=== PATIENT | female | born 1960 | race Caucasian/White ===

== ENCOUNTER 2017-06-29 15:25 | Emergency (ER) | payer OTHER ==
[2017-06-29] MEDS ORDERED: Acetaminophen/Codeine 30-300mg Tablet ONE (16:19)
== END 2017-06-29 16:34 | disposition home or self-care (01) ==
LOC: ERS 15:25
DX: K02.9 Dental caries, unspecified (principal); K03.81 Cracked tooth; F17.210 Nicotine dependence, cigarettes, uncomplicated; Z79.899 Other long term (current) drug therapy
CPT/HCPCS: 99406

== ENCOUNTER 2017-10-23 19:01 | Emergency (ER) | payer OTHER ==
--- NOTE | 2017-10-23 19:56 | RAD ---
TWO VIEW CHEST: 10/23/17 HISTORY: Cough. The lungs are clear. No infiltrates seen. Heart size is normal. IMPRESSION: No acute abnormality identified. POS: [facility]
== END 2017-10-23 20:03 | disposition home or self-care (01) ==
LOC: SCSER 19:01
DX: J06.9 Acute upper respiratory infection, unspecified (principal); F17.210 Nicotine dependence, cigarettes, uncomplicated
CPT/HCPCS: 71046

== ENCOUNTER 2017-12-15 15:23 | Emergency (ER) | payer OTHER | END 2017-12-15 16:10 | disposition left against medical advice (07) | LOC: ERS 15:23 | DX: Z53.21 Procedure and treatment not carried out due to patient leaving prior to being seen by health care provider (principal) ==

== ENCOUNTER 2017-12-17 12:42 | Emergency (ER) | payer OTHER ==
[2017-12-17 13:38] LABS: #Eosinphils 0.2 thou/uL (0.0-0.7); #Lymphocytes 2.5 thou/uL (1.20-3.40); #Monocytes 0.5 thou/uL (0.11-0.59); #Neutrophils 5.7 thou/uL (1.40-6.50); %Basophils 0.5 % (0.0-1.0); %Eosinophils 2.2 % (0.0-10.0); %Lymphocytes 27.8 % (21.0-51.0); %Monocytes 5.4 % (0.0-10.0); Hemoglobin 14.7 g/dL (12.0-16.0); Mean Corpuscular HGB CONC 33.1 g/dL (32.0-36.0); Mean Corpuscular Hemoglobin 30.1 pg (27.0-31.0); Mean Platelet Volume 6.7 fL (7.4-10.4); Platelet Count 392 thou/uL (130-400); Red Blood Cell (RBC) Count 4.87 mill/uL (4.20-5.40)
--- NOTE | 2017-12-17 13:44 | RAD ---
CHEST ONE VIEW PORTABLE: History: 57-year-old female with follow up cough and congestion in a patient with smoking history. FINDINGS: Heart size is normal. The lungs are clear. No pneumonia, edema, or pleural effusion. Stable focal are a of minimal increased density in the right humeral neck which is stable. IMPRESSION: No acute intrathoracic disease. Stable from prior study. No evidence of pneumonia, edema, or pleural effusion. POS: [facility]
[2017-12-17 14:02] LABS: ALT (SGPT) 18 U/L (8-55); AST (SGOT) 14 U/L (5-34); Albumin 4.4 g/dL (3.5-5.0); Alkaline Phosphatase 110 U/L (40-150); Anion Gap 16 mmol/L (10-20); BUN (Urea Nitrogen) 10 mg/dL (9.8-20.1); Bilirubin, Total 0.9 mg/dL (0.2-1.2); CK (CPK) 40 U/L (29-168); Calc. Creatinine Clearance 0 mL/min (70-130); Calcium 9.9 mg/dL (7.8-10.44); Carbon Dioxide 25 mmol/L (22-29); Chloride 104 mmol/L (98-107); Estimated GFR-MDRD 73; Globulin 3.1 g/dL (2.4-3.5); Glucose 86 mg/dL (70-105); Potassium 4.7 mmol/L (3.5-5.1); Protein, Total 7.5 g/dL (6.0-8.3); Sodium 140 mmol/L (136-145)
[2017-12-17 14:06] LABS: CKMB 0.9 ng/mL (0-6.6); Troponin I Less than 0.010 ng/mL (< 0.028)
[2017-12-17] MEDS ORDERED: Ketorolac Tromethamine 30 MG/ML VIAL ONE (14:59)
== END 2017-12-17 15:18 | disposition home or self-care (01) ==
LOC: ERS 12:42
DX: R07.89 Other chest pain (principal); F32.9 Major depressive disorder, single episode, unspecified; F17.210 Nicotine dependence, cigarettes, uncomplicated; Z79.899 Other long term (current) drug therapy
CPT/HCPCS: 36415; 71045; 80053; 82550; 82553; 84484; 85025; 93005; 96372; J1885

== ENCOUNTER 2019-01-12 16:48 | Emergency (ER) | payer OTHER ==
[2019-01-12 17:07] LABS: Bilirubin Negative (Negative); Blood, Urine Negative (Negative); Clarity CLEAR (Clear); Glucose, Urine (Dipstick) Negative (Negative); Leukocyte Negative (Negative); Nitrite Positive (Negative); Protein, Urine (Dipstick) Negative (Neg-Trace); Specific Gravity, Urine 1.019 (1.002-1.036); Urobilinogen 0.2 mg/dL (0.2-1.0); pH, Urine 5.5 (5.0-9.0)
[2019-01-12 17:10] LABS: Bacteria/HPF 4+ HPF (None Seen); Hyaline Casts/LPF 0-3 HYALINE CAST LPF (0-3 Hyaline); RBC/HPF 0-3 HPF (0-3); Squamous Epithelial 0-3 HPF (0-3); WBC/HPF 0-3 HPF (0-3)
[2019-01-12 18:28] LABS: #Eosinphils 0.1 thou/uL (0.0-0.7); #Lymphocytes 2.7 thou/uL (1.20-3.40); #Monocytes 0.7 thou/uL (0.11-0.59); %Basophils 0.3 % (0.0-1.0); %Eosinophils 1.1 % (0.0-10.0); %Lymphocytes 20.1 % (21.0-51.0); %Monocytes 4.8 % (0.0-10.0); %Neutrophils 73.8 % (42.0-75.0); Hemoglobin 14.9 g/dL (12.0-16.0); Mean Corpuscular HGB CONC 33.2 g/dL (32.0-36.0); Mean Corpuscular Hemoglobin 30.9 pg (27.0-31.0); Platelet Count 361 thou/uL (130-400); RBC Distribution Width 12.2 % (11.5-14.5); Red Blood Cell (RBC) Count 4.82 mill/uL (4.20-5.40); White Blood Cell (WBC) Count 13.6 thou/uL (4.8-10.8)
[2019-01-12 18:46] LABS: BHCG - Serum Negative (NEGATIVE); Pregs Control Background? CLEAR/WHITE (CLR/WHITE); Pregs Control Bar Appear? YES (CONTROL BAR)
[2019-01-12 18:51] LABS: ALT (SGPT) 16 U/L (8-55); AST (SGOT) 13 U/L (5-34); Albumin 4.3 g/dL (3.5-5.0); Alkaline Phosphatase 103 U/L (40-150); Anion Gap 12 mmol/L (10-20); Bilirubin, Total 0.6 mg/dL (0.2-1.2); Calc. Creatinine Clearance 0 mL/min (70-130); Calcium 9.7 mg/dL (7.8-10.44); Carbon Dioxide 27 mmol/L (22-29); Chloride 105 mmol/L (98-107); Estimated GFR-MDRD 80; Globulin 2.8 g/dL (2.4-3.5); Glucose 84 mg/dL (70-105); Lipase 23 U/L (8-78); Potassium 3.5 mmol/L (3.5-5.1); Protein, Total 7.1 g/dL (6.0-8.3); Sodium 140 mmol/L (136-145)
[2019-01-12 18:54] LABS: BUN (Urea Nitrogen) 13 mg/dL (9.8-20.1)
== END 2019-01-12 19:55 | disposition left against medical advice (07) ==
LOC: ERS 16:48
DX: M54.5 Low back pain (principal); F32.9 Major depressive disorder, single episode, unspecified; F17.210 Nicotine dependence, cigarettes, uncomplicated; Z79.899 Other long term (current) drug therapy
CPT/HCPCS: 36415; 80053; 81003; 81015; 83690; 84703; 85025; 99283

== ENCOUNTER 2019-06-21 15:00 | Emergency (ER) | payer OTHER ==
[2019-06-21 15:37] LABS: Bilirubin Negative (Negative); Blood, Urine Negative (Negative); Clarity Clear (Clear); Glucose, Urine (Dipstick) Normal (Negative); Leukocyte Negative Leu/uL (Negative); Nitrite Negative (Negative); Protein, Urine (Dipstick) Negative (Neg-Trace); Urobilinogen Normal mg/dL (Less than 2)
[2019-06-21] MEDS ORDERED: Ondansetron PF 4 MG/2 ML Vial ONE (16:19)
[2019-06-21] MEDS ORDERED: Ketorolac Tromethamine 30 MG/ML VIAL ONE (16:19)
--- NOTE | 2019-06-21 17:29 | CT ---
CT ABDOMEN AND PELVIS WITH CONTRAST: 06/21/19 INDICATION: Abdominal pain, diarrhea. FINDINGS: The lung bases are clear. Liver, spleen, pancreas unremarkable. Adrenal glands and kidneys unremarkable. Small bowel loops unremarkable. The appendix appears normal. Within the colon shows large amount of stool throughout the colon. There is mural thickening inflamm atory change involving the sigmoid and rectum. There is an area of abrupt luminal change in the lower sigmoid. Mucosal lesion at this site should be excluded. Small amount of fluid in the deep pelvis. IMPRESSION: Large amount of stool throughout the colon. Mural thickening and inflammatory change in the sigmoid a nd rectum consistent with colitis. Abrupt caliber change in the lower sigmoid. Recommend colonoscopy to rule out mucosa lesion and to assess the apparent colitis. POS: [facility]
[2019-06-21 17:36] LABS: Hemoglobin 14.7 g/dL (12.0-16.0); Mean Corpuscular HGB CONC 32.8 g/dL (32.0-36.0); Mean Corpuscular Hemoglobin 30.9 pg (27.0-31.0); Mean Corpuscular Volume 94.4 fL (78.0-98.0); Mean Platelet Volume 7.4 fL (7.4-10.4); Platelet Count 306 thou/uL (130-400); RBC Distribution Width 11.8 % (11.5-14.5); Red Blood Cell (RBC) Count 4.74 mill/uL (4.20-5.40); White Blood Cell (WBC) Count 10.2 thou/uL (4.8-10.8)
[2019-06-21 17:51] LABS: Band 4 % (5-11); Eosinophils 1 % (0-10); Lymphocytes 29 % (21-51); MDiff Complete? YES; Monocytes 2 % (0-10); Neutrophil 64 % (42-75); Platelet Morphology Comment Appears Adequate; RBC Morphology Normal
[2019-06-21 18:09] LABS: ALT (SGPT) 11 U/L (8-55); AST (SGOT) 15 U/L (5-34); Albumin 3.8 g/dL (3.5-5.0); Alkaline Phosphatase 88 U/L (40-110); Anion Gap 14 mmol/L (10-20); BUN (Urea Nitrogen) 10 mg/dL (9.8-20.1); Bilirubin, Total 0.4 mg/dL (0.2-1.2); Calc. Creatinine Clearance 0 mL/min (70-130); Calcium 8.9 mg/dL (7.8-10.44); Carbon Dioxide 23 mmol/L (22-29); Chloride 104 mmol/L (98-107); Estimated GFR-MDRD 83; Globulin 2.9 g/dL (2.4-3.5); Glucose 67 mg/dL (70-105); Lipase 35 U/L (8-78); Potassium 4.3 mmol/L (3.5-5.1); Protein, Total 6.7 g/dL (6.0-8.3); Sodium 137 mmol/L (136-145)
== END 2019-06-21 19:14 | disposition home or self-care (01) ==
LOC: ERS 15:00
DX: K52.9 Noninfective gastroenteritis and colitis, unspecified (principal); F32.9 Major depressive disorder, single episode, unspecified; F17.210 Nicotine dependence, cigarettes, uncomplicated; Z79.899 Other long term (current) drug therapy
CPT/HCPCS: 36415; 74177; 80053; 81003; 83605; 83690; 85025; 96361; 96374; 96375; J1885; J2405

== ENCOUNTER 2019-09-02 11:44 | Emergency (ER) | payer OTHER | END 2019-09-02 13:07 | disposition left against medical advice (07) | LOC: ERS 11:44 | DX: Z53.21 Procedure and treatment not carried out due to patient leaving prior to being seen by health care provider (principal) ==

== ENCOUNTER 2019-09-21 19:05 | Emergency (ER) | payer OTHER ==
[2019-09-21 20:54] LABS: #Basophils 0.1 thou/uL (0.0-0.2); #Eosinphils 0.3 thou/uL (0.0-0.7); #Lymphocytes 3.4 thou/uL (1.20-3.40); #Monocytes 0.6 thou/uL (0.11-0.59); #Neutrophils 6.7 thou/uL (1.40-6.50); %Basophils 0.9 % (0.0-1.0); %Eosinophils 2.6 % (0.0-10.0); %Lymphocytes 30.8 % (21.0-51.0); %Monocytes 5.7 % (0.0-10.0); %Neutrophils 60.1 % (42.0-75.0); Hemoglobin 15.2 g/dL (12.0-16.0); Mean Corpuscular HGB CONC 32.3 g/dL (32.0-36.0); Mean Corpuscular Hemoglobin 29.8 pg (27.0-31.0); Mean Corpuscular Volume 92.3 fL (78.0-98.0); Mean Platelet Volume 7.6 fL (7.4-10.4); Platelet Count 453 thou/uL (130-400); RBC Distribution Width 12.2 % (11.5-14.5); Red Blood Cell (RBC) Count 5.09 mill/uL (4.20-5.40); White Blood Cell (WBC) Count 11.2 thou/uL (4.8-10.8)
[2019-09-21 21:17] LABS: ALT (SGPT) 15 U/L (8-55); AST (SGOT) 9 U/L (5-34); Albumin 4.7 g/dL (3.5-5.0); Alkaline Phosphatase 121 U/L (40-110); Anion Gap 13 mmol/L (10-20); BUN (Urea Nitrogen) 13 mg/dL (9.8-20.1); Bilirubin, Total 0.5 mg/dL (0.2-1.2); Calc. Creatinine Clearance 0 mL/min (70-130); Calcium 9.7 mg/dL (7.8-10.44); Carbon Dioxide 27 mmol/L (22-29); Chloride 105 mmol/L (98-107); Estimated GFR-MDRD 78; Glucose 99 mg/dL (70-105); Potassium 4.1 mmol/L (3.5-5.1); Protein, Total 7.7 g/dL (6.0-8.3); Sodium 141 mmol/L (136-145)
[2019-09-22 00:41] LABS: Bilirubin Negative (Negative); Blood, Urine Negative (Negative); Clarity Clear (Clear); Glucose, Urine (Dipstick) Normal (Negative); Leukocyte Negative Leu/uL (Negative); Nitrite Negative (Negative); Protein, Urine (Dipstick) Negative (Neg-Trace)
[2019-09-22] MEDS ORDERED: Morphine 4 MG/ML VIAL ONE (01:08)
== END 2019-09-22 01:15 | disposition left against medical advice (07) ==
LOC: ERS 19:05
DX: C18.9 Malignant neoplasm of colon, unspecified (principal); F17.210 Nicotine dependence, cigarettes, uncomplicated; F32.9 Major depressive disorder, single episode, unspecified
CPT/HCPCS: 36415; 80053; 81003; 83690; 85025; 99284; J2270

== ENCOUNTER 2019-09-30 07:46 | Outpatient (CLI) | payer OTHER ==
[2019-09-30 14:31] LABS: #Basophils 0.1 thou/uL (0.0-0.2); #Eosinphils 0.3 thou/uL (0.0-0.7); #Lymphocytes 2.8 thou/uL (1.20-3.40); #Monocytes 0.6 thou/uL (0.11-0.59); #Neutrophils 8.4 thou/uL (1.40-6.50); %Basophils 0.8 % (0.0-1.0); %Eosinophils 2.2 % (0.0-10.0); %Lymphocytes 22.8 % (21.0-51.0); %Monocytes 5.2 % (0.0-10.0); Hemoglobin 14.2 g/dL (12.0-16.0); Mean Corpuscular HGB CONC 32.4 g/dL (32.0-36.0); Mean Corpuscular Hemoglobin 29.9 pg (27.0-31.0); Mean Corpuscular Volume 92.4 fL (78.0-98.0); Platelet Count 389 thou/uL (130-400); Red Blood Cell (RBC) Count 4.74 mill/uL (4.20-5.40); White Blood Cell (WBC) Count 12.2 thou/uL (4.8-10.8)
[2019-09-30 14:38] LABS: Hemoglobin A1c 5.3 % (4.0-6.0)
[2019-09-30 14:52] LABS: ALT (SGPT) 14 U/L (8-55); AST (SGOT) 13 U/L (5-34); Albumin 4.3 g/dL (3.5-5.0); Alkaline Phosphatase 108 U/L (40-110); Anion Gap 12 mmol/L (10-20); BUN (Urea Nitrogen) 12 mg/dL (9.8-20.1); Bilirubin, Total 0.6 mg/dL (0.2-1.2); Calc. Creatinine Clearance 0 mL/min (70-130); Carbon Dioxide 25 mmol/L (22-29); Chloride 107 mmol/L (98-107); Estimated GFR-MDRD 80; Globulin 2.4 g/dL (2.4-3.5); Glucose 80 mg/dL (70-105); Potassium 4.2 mmol/L (3.5-5.1); Protein, Total 6.7 g/dL (6.0-8.3); Sodium 140 mmol/L (136-145)
--- NOTE | 2019-10-03 00:19 | EKG ---
Test Reason : Blood Pressure : / mmHG Vent. Rate : 080 BPM Atrial Rate : 080 BPM P-R Int : 000 ms QRS Dur : 086 ms QT Int : 358 ms P-R-T Axes : 000 091 084 degrees QTc Int : 412 ms Sinus rhythm with marked sinus arrhythmia Rightward axis Borderline ECG When compared with ECG of 17-DEC-2017 13:03, (Unconfirmed) No significant change was found Confirmed by Esvin SMITH ([id number]) on 10/03/2019 12:19:14 AM Referred By: DALIA Confirmed By:Esvin SMITH
== END 2019-09-30 07:47 | disposition home or self-care (01) ==
LOC: LABBT 07:46
PROVIDERS: ATTEND Specialist
DX: Z01.818 Encounter for other preprocedural examination (principal); K63.89 Other specified diseases of intestine
CPT/HCPCS: 80053; 82378; 83036; 85025; 93005; 93010

== ENCOUNTER 2019-09-30 12:30 | Inpatient (IN) | payer OTHER ==
[2019-09-30 13:18] VITALS: BMI 22.4
--- NOTE | 2019-10-03 12:31 | HP ---
HISTORY OF PRESENT ILLNESS: Roberta Bell is a 59-year-old female with significant anxiety, depression, and panic attacks diagnoses. She is on disability from that. She is followed by [facility]. She was having abdominal pain as far back as May of 2019, presented to the emergency room. CT scan obtained, revealed changes in the colon, thought to be diverticulitis, so she was treated with antibiotics. Colonoscopy was recommended. [facility] was [facility] and because of the concern that she might have diverticulitis, her colonoscopy was postponed. She then presented to the emergency room on several other occasions, but left AMA. She finally presented to [facility], was admitted September 10, , and , seen by Dr. Hayes. Dr. Hayes performed a colonoscopy, but could not get the scope past 15 to 20 cm despite even trying a smaller scope. Biopsies revealed changes consistent with adenocarcinoma. The patient however did not follow up with Dr. Hayes and his efforts to get her into the office were delayed, and when she finally presented on Thursday, he suggested that she is to go the emergency room at [facility], which she did, and as preparation was made to admit her, she left AMA. She now presents to my office without family to discuss her colon cancer. She did have a CT scan in mid August 2019 at [facility] revealing spiculated mass, lower sigmoid into the mesentery. There were some small lymph nodes, 1.2 to 1.3 cm. There was a stricture in the sigmoid colon with spiculation extending into the mesentery. There was a [id number] amount of retained stool proximally. CT scan did not reveal any evidence of hepatic metastasis. Her hemoglobin was 15. BMP normal. ALLERGIES: NONE. HABITS: Tobacco, 1/2 pack per day. Alcohol, none. PAST SURGICAL HISTORY: 1. . 2. Partial hysterectomy. She describes as hysterectomy with unilateral salpingo-oophorectomy. MEDICATIONS: 1. Nortriptyline 50 mg at bedtime. 2. Paroxetine 30 mg, 1/2 tab morning and 1-1/2 tabs nightly. She is followed by [facility]. As noted above, she is on disability for her panic and anxiety disorder as well as depression. SOCIAL HISTORY: The patient is and lives alone. She has grandchildren. FAMILY HISTORY: Noncontributory. REVIEW OF SYSTEMS: Noncontributory. No history of chest pain or chest pressure or dyspnea. PHYSICAL EXAMINATION: VITAL SIGNS: Weight 119 pounds, height 5 feet 9 inches, 22 BMI, 100/63 blood pressure, 112 heart rate, 98.2 degrees. HEAD, EARS, EYES, NOSE, AND THROAT: Unremarkable. LUNGS: Clear to auscultation. CARDIAC: Regular rate and rhythm without murmur or gallop. ABDOMEN: Soft, fullness without discrete mass palpated in the left lower quadrant, otherwise unremarkable. EXTREMITIES: Unremarkable. ASSESSMENT AND PLAN: 1. 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 We would recommend 2 days of bowel prep with 2 days of Suprep, 2 days of clear liquids, general anesthesia and TAP block for laparoscopic possible open sigmoid colon resection with anastomosis. Risks of infection, bleeding, reoperation, anastomotic leak discussed. We will plan that for next week. She understands risks and benefits. Questions were answered. 2. Tobacco abuse. I have encouraged tobacco cessation or at least cutting down prior to her operation. She states she will do her best. 3. No evidence of hepatic metastasis on multiple CT scans since May and more recently, mid August. We will check CEA level. We will plan oncology referral as an outpatient postoperatively more than likely. Job ID: [id number]
[2019-10-05] MEDS ORDERED: PROPOFOL 200 MG/20 ML VIAL ONE (10:52)
[2019-10-05] MEDS ORDERED: Dexamethasone 20 MG/5 ML VIAL ONE (10:52)
[2019-10-05] MEDS ORDERED: PHENYLEPHRINE-NS 100 MCG/ML 10 ML SYRINGE ONE (10:52)
[2019-10-05] MEDS ORDERED: Bupivacaine HCl 0.5%/Epinephrine 1:200,000/PF 30 ml Vial ONE (10:52)
[2019-10-05] MEDS ORDERED: Ondansetron PF 4 MG/2 ML Vial ONE (10:52)
[2019-10-05] MEDS ORDERED: Glycopyrrolate 0.2 MG/ML 5 ML SYRINGE ONE (10:52)
[2019-10-05] MEDS ORDERED: Rocuronium Bromide 10 MG/ML (10ML VIAL) ONE (10:52)
[2019-10-05] MEDS ORDERED: Gabapentin 300 MG CAP ONE (11:37)
[2019-10-05] MEDS ORDERED: Acetaminophen 500 MG TAB ONE (11:37)
[2019-10-05] MEDS ORDERED: Ketorolac Tromethamine 30 MG/ML VIAL ONE (11:38)
[2019-10-05] MEDS ORDERED: Meropenem 2 GM in Admixture Fee 1 EACH IVPB SCH (11:45)
[2019-10-05] MEDS ORDERED: Gabapentin 300 MG CAP PO SCH (11:45)
[2019-10-05] MEDS ORDERED: Meropenem 2 GM in Sodium Chloride 0.9% 100 ML IVPB SCH (12:00)
[2019-10-05] MEDS ORDERED: HYDROmorphone 0.5 MG/0.5 ML SYRINGE ONE (12:42)
[2019-10-05] MEDS ORDERED: SUGAMMADEX SODIUM 200 MG/2 ML VIAL ONE (12:42)
[2019-10-05] MEDS ORDERED: Bupivacaine 0.25% HCL 30 ML VIAL ONE (12:52)
[2019-10-05] MEDS ORDERED: Lidocaine 1% w/Epinephrine 1:100K 20 ML VIAL ONE (12:52)
[2019-10-05] MEDS ORDERED: Sodium Chloride 0.9% 20 ML ONE (14:00)
[2019-10-05] MEDS ORDERED: HYDROmorphone 2 MG/ML VIAL SLOW IVP PRN (14:29)
[2019-10-05] MEDS ORDERED: Ondansetron HCl/PF 4 MG/2 ML Vial IVP PRN (14:29)
[2019-10-05] MEDS ORDERED: Promethazine HCl 25 MG/ML VIAL SLOW IVP PRN (14:29)
[2019-10-05] MEDS ORDERED: Midazolam HCl 2 mg/2 ml Vial ONE (14:41)
[2019-10-05] MEDS ORDERED: Fentanyl 100 MCG/2 ML VIAL ONE (14:41)
[2019-10-05] MEDS ORDERED: hydrALAZINE 20 MG/ML VIAL SLOW IVP PRN (16:45)
[2019-10-05] MEDS ORDERED: Morphine 2 MG/ML SYRINGE SLOW IVP PRN (16:45)
[2019-10-05] MEDS ORDERED: Morphine 10 MG/ML VIAL SLOW IVP PRN (16:45)
[2019-10-05] MEDS ORDERED: Ondansetron PF 4 MG/2 ML Vial IVP PRN (16:45)
--- NOTE | 2019-10-05 17:23 | RAD ---
Chest one view HISTORY: Central line placement. Abdomen surgery. COMPARISON: 12/17/2017. FINDINGS: Cardiac silhouette and pulmonary vasculature are unremarkable. Left lung apical pleura over lies the posterior margin of the left third rib on the frontal view. Right lung is well-inflated. Mediastinum is midline with aortic calcification. Tip of a new left subc lavian central venous catheter projects over the cavoatrial junction. Small amount of air is seen under the diaphragm on this semiupright view. IMPRESSION: Small left pneumothorax (approximately 10%). Pneumoperitoneum from recent abdominal surgery. Atherosclerosis. Findings were called to Mariel in the PACU at 1710 hours. Code CR.
[2019-10-05] MEDS: Lactated Ringer's 1,000 ML IV SCH (18:05)
[2019-10-05] MEDS: Ketorolac Tromethamine 30 MG/ML VIAL IVP SCH ×2 (18:21→23:06)
[2019-10-05] MEDS: Morphine 4 MG/ML VIAL SLOW IVP PRN ×2 (18:22→21:05)
[2019-10-05] MEDS: Acetaminophen 500 MG TAB PO SCH ×2 (18:30→23:06)
--- NOTE | 2019-10-05 19:02 | RAD ---
XR Chest 1 View History: Pneumothorax Comparison: Radiograph same day Findings: The left pneumothorax is increased in size with a large basilar component. The apex is betw een the left second and third ribs. Large volume pneumoperitoneum. Right lung is relatively clear. Impression: Enlarging left pneumothorax with a large basilar component, approximately 30% volume.
[2019-10-05] MEDS ORDERED: Lidocaine 1% w/Epinephrine 1:100K 20 ML VIAL FS SCH (19:30)
--- NOTE | 2019-10-05 20:26 | RAD ---
XR Chest 1 View Portable History: Chest tube Comparison: Radiograph same day Findings: Improved aeration of the left lung after thoracostomy tube placement. Central venous cathet er tip is similar. Impression: Markedly improved aeration of the left lung post thoracostomy placement.
[2019-10-05] MEDS: Gabapentin 300 MG CAP PO SCH (21:05)
[2019-10-05] MEDS: Enoxaparin Sodium 40 MG/0.4 ML SYRINGE SC SCH (21:05)
[2019-10-06] MEDS: Lactated Ringer's 1,000 ML IV SCH ×5 (01:50→20:54)
--- NOTE | 2019-10-06 02:14 | OP ---
DATE OF PROCEDURE: 10/05/2019 PREOPERATIVE DIAGNOSIS: Sigmoid colon cancer, high-grade, obstructive, could not perform colonoscopy, yet could tolerate a bowel prep. POSTOPERATIVE DIAGNOSES: Sigmoid colon cancer, high-grade, obstructive, could not perform colonoscopy, yet could tolerate a bowel prep with large fecalith and large tumor and multiple large stool balls throughout the colon due to the high-grade obstruction, poor IV access. PROCEDURES PERFORMED: Left subclavian vein central line, laparoscopic converted to open, left colon resection with splenic flexure mobilization, left colectomy, low pelvic colorectal anastomosis staple 31 mm EEA and protective loop ileostomy. Incidental appendectomy, fecalith. No evidence of metastatic disease except for bulky lymphadenopathy, mesentery grossly. ANESTHESIA: General, TAP block. ESTIMATED BLOOD LOSS: 250 mL. BLOOD TRANSFUSION: None. Preoperative CEA level 6.9. DESCRIPTION OF PROCEDURE: The patient was taken to the operating room, where under general anesthesia and TAP block in the dorsal lithotomy position, the left paraclavicular area was prepared with ChloraPrep and draped in routine fashion. Seldinger technique used to place an infraclavicular central line, subclavian vein, secured with 3-0 silk suture, sterile dressing, removing the J-wire. Each port aspirated, blood flushed with saline solution. Abdomen, pelvis, perineum, buttocks prepared with ChloraPrep and Betadine respectfully and Cruz catheter placed. An infraumbilical incision was made. Pneumoperitoneum to 15 mmHg was obtained with a Veress needle, replaced with a 5 port and video laparoscope inserted. Right lower quadrant incision made and a 12 port placed. The right upper quadrant, left upper quadrant, and left lower quadrant incision made and 5 port was placed. The colon tumor was noted in the sigmoid colon. There were multiple large stool balls in the left colon, sigmoid colon proximal to the high-grade obstruction. The tumor is so low and the stool wall is so large and the small bowel is slightly dilated. The complete laparoscopic procedure was not possible. The left colon was mobilized as able, felt to be adequate and then midline incision was made from above the umbilicus to the pubis through an old infraumbilical incision, carried through skin and subcutaneous tissue, midline fascia, and abdominal cavity sharply. Bookwalter retractor was used later in the procedure. Incision extended a few inches cephalad. The left colon was mobilized and the left and right ureters identified, kept free of harm as the left colon, splenic flexure, and pelvis mobilized of the sigmoid colon. Once this was mobilized, the sigmoid mesentery dissected free and the JOCELYN divided between clamps, ligating with 2-0 silk ties. The mesentery divided and dissected down to the pelvis, had it placed just after and just above the peritoneal reflection. The colon was dissected free, divided with a contour stapler. Hemorrhoidal vessels resected en bloc with the JOCELYN. Dissection was carried cephalad as the ureter was kept free of harm. Once the stool was milked distally at the proximal sigmoid colon, the colon was divided. The distal colon seemed to be dusky and question of blood supply, thus further dissection and mobilization of splenic flexure and distal transverse colon performed requiring the cephalad extension incision as described. Once this was performed, a viable margin in the colon was identified with adequate reach into the pelvis and the mesentery was serially divided with the LigaSure. The inferior mesenteric vein required revision to enable this. Once the colon was divided, mucosa was pink and healthy. Stool had milked into the specimen as able. Pursestring suture of 2-0 Prolene applied and 31 mm anvil applied and colon secured around the anvil. Gloves and gowns changed. Abdominal cavity irrigated. My psychology assistant then placed serial dilators per anus and easily passed to the rectal stump. The stapler was then inserted and post advanced out of the staple line and connected to the proximal anvil and to the proximal colon and these were mated and approximated with a torque fire range and stapler fired appropriately, then loosened removing intact donuts. The anastomosis was checked under water and there was no leak. Anastomosis was reinforced with interrupted Lembert suture of 3-0 silk. All quadrants inspected. Hemostasis noted. I grossly felt the colon could not feel any masses, although it is difficult due to retained large stool balls. There was a large fecalith. Thus, appendectomy undertaken dividing the mesoappendix with the LigaSure and stapling the cecal stump with a MICHAEL stapler. The appendix submitted to Pathology. At this point, the segment of the ileum approximately 8 to 9 inches from the ileocecal valve identified and brought out through a cruciate defect in the anterior rectus sheath and surgery defect in the skin and then abdominal cavity thoroughly irrigated, irrigant evacuated. Good hemostasis has been obtained. Sponge and needle counts correct. Midline fascia closed with continuous suture of #1 PDS. Skin and subcutaneous tissues irrigated. Skin approximated with madelaine and elvi dressing. Suction applied for the incision. Mickleton applied to the trocar sites. The right lower quadrant trocar site was closed with continuous segmental suture of 4-0 Monocryl. Dermabond applied. Loop ileostomy was then matured making a defect and then everting it with simple sutures of 3-0 Vicryl and ileostomy appliance secured. The patient tolerated the procedure well. Job ID: [id number]
--- NOTE | 2019-10-06 02:56 | OP ---
DATE OF PROCEDURE: 10/05/2019 PREOPERATIVE DIAGNOSIS: Pneumothorax, left chest secondary to central line placement, left subclavian. POSTOPERATIVE DIAGNOSIS: Pneumothorax, left chest secondary to central line placement, left subclavian. PROCEDURE PERFORMED: Left tube thoracostomy, Heimlich valve small caliber tube. ANESTHESIA: 1% Xylocaine with epinephrine. DESCRIPTION OF PROCEDURE: With the patient at bedside, her left lateral chest was prepared with ChloraPrep and draped in routine fashion. Local anesthetic was infiltrated in the skin and subcutaneous tissue at about the fifth intercostal space. After the area had been anesthetized, a stab was incision made and the Heimlich valve tube placed into the left thorax, aspirated air, threading the catheter, secured with 3-0 silk. Sterile dressings applied. It was connected to flutter valve and chest x-ray called for. Job ID: [id number]
[2019-10-06 03:46] LABS: Anion Gap 11 mmol/L (10-20); BUN (Urea Nitrogen) 13 mg/dL (9.8-20.1); Calc. Creatinine Clearance 78 mL/min (70-130); Calcium 8.4 mg/dL (7.8-10.44); Carbon Dioxide 25 mmol/L (22-29); Chloride 106 mmol/L (98-107); Estimated GFR-MDRD 89; Glucose 97 mg/dL (70-105); Potassium 4.2 mmol/L (3.5-5.1); Sodium 138 mmol/L (136-145)
[2019-10-06 04:00] LABS: Band 14 % (5-11); Hemoglobin 10.6 g/dL (12.0-16.0); Lymphocytes 9 % (21-51); MDiff Complete? YES; Mean Corpuscular HGB CONC 32.8 g/dL (32.0-36.0); Mean Corpuscular Hemoglobin 30.3 pg (27.0-31.0); Mean Corpuscular Volume 92.3 fL (78.0-98.0); Mean Platelet Volume 7.8 fL (7.4-10.4); Monocytes 5 % (0-10); Neutrophil 72 % (42-75); Platelet Count 311 thou/uL (130-400); White Blood Cell (WBC) Count 16.6 thou/uL (4.8-10.8)
[2019-10-06] MEDS: Acetaminophen 500 MG TAB PO SCH ×4 (05:24→23:11)
[2019-10-06] MEDS: Ketorolac Tromethamine 30 MG/ML VIAL IVP SCH ×4 (05:24→23:10)
[2019-10-06] MEDS ORDERED: Lactated Ringer's 1,000 ML IV SCH (06:30)
--- NOTE | 2019-10-06 07:51 | RAD ---
CHEST 1 VIEW PORTABLE: HISTORY: Followup pneumothorax. COMPARISON: 10/05/2019. FINDINGS: Left central line in place. Minimal free intraperitoneal air. Small caliber left chest tube in plac e. No convincing evidence for significant pneumothorax. IMPRESSION: Persistent small-caliber Heimlich valve catheter in place. No convincing evidence for significant le ft side pneumothorax. Overall stable. Continue short-term followup. POS: [facility]
[2019-10-06] MEDS: Gabapentin 300 MG CAP PO SCH ×3 (08:25→20:53)
[2019-10-06] MEDS: Pantoprazole 40 MG VIAL IVP SCH (08:25)
[2019-10-06] MEDS ORDERED: Fentanyl 100 MCG/2 ML VIAL SLOW IVP PRN (09:22)
[2019-10-06] MEDS ORDERED: Fentanyl 100 MCG/2 ML VIAL SLOW IVP ONE (09:30)
[2019-10-06] MEDS ORDERED: traMADol HCl 50 MG TAB PO PRN ×2 (18:18)
--- NOTE | 2019-10-06 18:39 | PRG ---
DATE OF SERVICE: 10/06/2019 SUBJECTIVE: Roberta Bell is postoperative day #1 after laparoscopic converted to open left colectomy, splenic flexure mobilization, colorectal anastomosis, protective diverting ileostomy, and incidental appendectomy performed because of hard stool within the appendiceal orifice. The patient complains of pain, but has been controlled reasonably. OBJECTIVE: VITAL SIGNS: Temperature 97.5 degrees, sat 92%, heart rate 100, blood pressure low blood pressure in the 90s to low 100s. Urine output 1425 over the last 24 hours. LUNGS: Clear to auscultation. CARDIAC: Regular rate and rhythm without murmur or gallop. ABDOMEN: Soft. Ileostomy healthy. The patient does have ileostomy output. EXTREMITIES: Unremarkable. LABORATORY DATA: Her white count today is 16 and hemoglobin 10. Basic metabolic profile is normal. ASSESSMENT/PLAN: 1. Status post sigmoid colon resection. Preoperative CEA 6.9. CAT scan without metastasis, although grossly the sigmoid tumor seen to have mesenteric lymphadenopathy. We will await pathology. Currently, she is tolerating liquids. We will increase her to full liquids. We will order oral analgesics. She has Toradol scheduled. 2. Chronic low blood pressure. Continue to monitor. She is mentating normally. Recheck tomorrow. Job ID: [id number]
[2019-10-06] MEDS: Enoxaparin Sodium 40 MG/0.4 ML SYRINGE SC SCH (20:53)
[2019-10-06] MEDS: Albumin 25% 25 GM/100 ML BOT IVPB SCH (23:11)
[2019-10-07] MEDS: Albumin 25% 25 GM/100 ML BOT IVPB SCH ×3 (05:56→17:39)
[2019-10-07] MEDS: Ketorolac Tromethamine 30 MG/ML VIAL IVP SCH ×3 (05:56→17:40)
[2019-10-07] MEDS: Acetaminophen 500 MG TAB PO SCH ×4 (05:56→23:45)
[2019-10-07 06:18] LABS: #Eosinphils 0.1 thou/uL (0.0-0.7); #Lymphocytes 2.3 thou/uL (1.20-3.40); #Monocytes 0.4 thou/uL (0.11-0.59); #Neutrophils 4.8 thou/uL (1.40-6.50); %Basophils 0.4 % (0.0-1.0); %Eosinophils 1.8 % (0.0-10.0); %Lymphocytes 29.3 % (21.0-51.0); %Monocytes 5.7 % (0.0-10.0); %Neutrophils 62.7 % (42.0-75.0); Hemoglobin 8.3 g/dL (12.0-16.0); Mean Corpuscular HGB CONC 30.8 g/dL (32.0-36.0); Mean Corpuscular Hemoglobin 28.6 pg (27.0-31.0); Mean Corpuscular Volume 92.9 fL (78.0-98.0); Mean Platelet Volume 7.4 fL (7.4-10.4); Platelet Count 249 thou/uL (130-400); RBC Distribution Width 12.2 % (11.5-14.5); Red Blood Cell (RBC) Count 2.89 mill/uL (4.20-5.40); White Blood Cell (WBC) Count 7.7 thou/uL (4.8-10.8)
[2019-10-07 06:39] LABS: ALT (SGPT) 19 U/L (8-55); AST (SGOT) 29 U/L (5-34); Albumin 3.2 g/dL (3.5-5.0); Alkaline Phosphatase 64 U/L (40-110); Anion Gap 8 mmol/L (10-20); BUN (Urea Nitrogen) 11 mg/dL (9.8-20.1); Bilirubin, Total 0.6 mg/dL (0.2-1.2); Calc. Creatinine Clearance 83 mL/min (70-130); Calcium 8.2 mg/dL (7.8-10.44); Carbon Dioxide 31 mmol/L (22-29); Chloride 107 mmol/L (98-107); Estimated GFR-MDRD Greater than 90; Globulin 1.7 g/dL (2.4-3.5); Glucose 90 mg/dL (70-105); Potassium 4.1 mmol/L (3.5-5.1); Protein, Total 4.9 g/dL (6.0-8.3); Sodium 142 mmol/L (136-145)
--- NOTE | 2019-10-07 08:08 | RAD ---
Exam: Chest one view HISTORY:Follow-up pneumothorax Comparison: 10/06/2019, 10/05/2019 FINDINGS: Cardiac silhouette: Normal Aorta: Atherosclerosis of the aortic knob Pulmonary vessels: Normal Costophrenic angles: Clear LUNGS: Stable left-sided small bore chest tube. No significant pneumothorax. Stable left-sided vascul ar catheter. Pneumothorax: No significant left-sided pneumothorax. Osseous abnormalities: None Incidentals: Redemonstration of pneumoperitoneum IMPRESSION: 1. Redemonstration of pneumoperitoneum 2. Stable left-sided small bore chest tube. No significant pneumothorax.
[2019-10-07] MEDS: Gabapentin 300 MG CAP PO SCH ×3 (09:03→19:56)
[2019-10-07] MEDS: Pantoprazole 40 MG VIAL IVP SCH (09:04)
[2019-10-07] MEDS ORDERED: Lactated Ringer's 1,000 ML IV SCH (09:27)
[2019-10-07 10:58] LABS: HBCM Index 0.06 S/CO (0-0.79); HBSAg Index 0.32 S/CO (0-0.99); Hep A IgM AB Non-Reactive (NonReactive); Hep A IgM S/CO 0.13 S/CO (0-0.79); Hep B Surf Ag Non-Reactive S/CO (NonReactive); Hep C IgG Ab Non-Reactive (NonReactive); Hep C Index 0.06 S/CO (0-0.79); Hepatitis B Core IgM Abs Non-Reactive (NonReactive)
[2019-10-07] MEDS ORDERED: Lorazepam 2 MG/ML VIAL SLOW IVP SCH (14:45)
[2019-10-07] MEDS ORDERED: Ibuprofen 600 MG TAB PO PRN (19:30)
--- NOTE | 2019-10-07 19:44 | PRG ---
DATE OF SERVICE: 10/07/2019 SUBJECTIVE: Roberta Bell is doing well today. She is tolerating her diet. OBJECTIVE: VITAL SIGNS: Temperature 98.2 degrees, heart rate 86, blood pressure 124/71. LUNGS: Clear. No wheezing. CARDIAC: Regular rate and rhythm without murmur or gallop. ABDOMEN: Soft. Good bowel sounds. Good ileostomy output. Ileostomy healthy. Pathology pending. IMAGING STUDIES: Chest x-ray reveals full lung expansion. The chest tube was removed. LABORATORY DATA: White count 7, hemoglobin 8.3. Basic metabolic profile, normal. ASSESSMENT AND PLAN: The patient overall is doing well. Plan at this time would be to discharge home tomorrow with ileostomy supplies. She has been instructed on ileostomy care. She is familiar with this. I would recommend she follow up with me next for staple removal. She can shower and bathe. Overall, she is doing well. We will stop her albumin. Job ID: [id number]
[2019-10-07] MEDS: PARoxetine 20 MG TAB PO SCH (19:57)
[2019-10-07] MEDS: Enoxaparin Sodium 40 MG/0.4 ML SYRINGE SC SCH (20:03)
[2019-10-07] MEDS ORDERED: Nortriptyline HCl 25 MG CAP PO SCH ×2 (21:00)
[2019-10-07] MEDS ORDERED: PARoxetine 20 MG TAB PO SCH (21:00)
[2019-10-08] MEDS: Acetaminophen 500 MG TAB PO SCH ×2 (05:29→12:47)
[2019-10-08] MEDS: Gabapentin 300 MG CAP PO SCH ×2 (08:58→14:55)
[2019-10-08] MEDS: PARoxetine 20 MG TAB PO SCH (08:59)
--- NOTE | 2019-10-08 10:44 | RAD ---
PORTABLE CHEST: HISTORY: Followup of pneumothorax. COMPARISON: Prior day's study. FINDINGS: Left-sided subclavian line is unchanged in position. The left-sided Heimlich valve tube has been rem carine. NO pneumothorax identified. Free air into the right hemidiaphragm persists. IMPRESSION: 1. Interval removal of the left Heimlich valve tube. No signs of any pneumothorax. Atelectatic jamil nge is seen in the left base. 2. Persistent air under the right hemidiaphragm is stable. POS: [facility]
[2019-10-08 16:16] VITALS: BP 123/70; TEMP 97.5
--- NOTE | 2019-10-09 01:49 | DIS ---
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 CONSULTATIONS: None. PROCEDURES: 1. Left subclavian line placement. 2. Laparoscopic converted to open. 3. Left colon resection with splenic flexure mobilization. 4. Left colectomy. 5. Low pelvic colorectal anastomosis staple 31 mm EEA. 6. Protective loop ileostomy. 7. Incidental appendectomy, fecalith. 8. Left tube thoracostomy, Heimlich valve, small caliber tube for pneumothorax after central line placement. CONSULTATIONS: None. SUMMARY: The patient is a 59-year-old woman who has abdominal pain starting in May of 2019, where she underwent evaluation and examination and was noted to have change in the colon, thought to be diverticulitis and was treated with antibiotics. The patient was recommended to have a colonoscopy which she underwent, but unfortunately GI was unable to get the scope past 15 to 20 cm, but they were able to biopsy which revealed changes consistent with adenocarcinoma. The patient will be admitted to the hospital and undergo the above procedures. At time of discharge, the patient was tolerating a diet. Her pain was controlled. She was ambulating without difficulty. She will follow up with Dr. Pisano on October 13. The patient had ileostomy supplies and instructions on care at time of discharge, and she understood that. Dr. Pisano gave her instructions that she can shower and bath. She was also given return precautions at time of discharge. Job ID: [id number]
== END 2019-10-08 16:00 | disposition home or self-care (01) | DRG 330 ==
LOC: SURG A 10-05 10:57
PROVIDERS: ADMIT Specialist; ATTEND Specialist
PROC: 0DTN0ZZ Resection of Sigmoid Colon, Open Approach (ICD-10-PCS; principal; 2019-10-05)
PROC: 0DJD4ZZ Inspection of Lower Intestinal Tract, Percutaneous Endoscopic Approach (ICD-10-PCS; 2019-10-05)
PROC: 0D1B0Z4 Bypass Ileum to Cutaneous, Open Approach (ICD-10-PCS; 2019-10-05)
PROC: 0DTJ0ZZ Resection of Appendix, Open Approach (ICD-10-PCS; 2019-10-05)
PROC: 0W9B30Z Drainage of Left Pleural Cavity with Drainage Device, Percutaneous Approach (ICD-10-PCS; 2019-10-05)
DX: C18.7 Malignant neoplasm of sigmoid colon (principal); J95.811 Postprocedural pneumothorax; K63.89 Other specified diseases of intestine; F17.200 Nicotine dependence, unspecified, uncomplicated; F41.9 Anxiety disorder, unspecified; F32.9 Major depressive disorder, single episode, unspecified; K38.1 Appendicular concretions; I95.89 Other hypotension; Z79.899 Other long term (current) drug therapy; Z53.31 Laparoscopic surgical procedure converted to open procedure; Y84.8 Other medical procedures as the cause of abnormal reaction of the patient, or of later complication, without mention of misadventure at the time of the procedure
CPT/HCPCS: 36416; 71045; 71046; 80048; 80053; 80074; 85025; 88304; 88309; 88313; 88361; C9113; J0670; J1100; J1170; J1650; J1885; J2060; J2250; J2270; J2405; J2704; J3010; P9047; S0020

== ENCOUNTER 2019-12-08 08:30 | Outpatient (CLI) | payer OTHER ==
--- NOTE | 2019-12-08 11:20 | CT ---
CT NECK WITH CONTRAST: Date: 12/08/2019 INDICATION: Swelling left side of neck. Marker placed in left neck at site of concern. There is history of Stage III colon cancer. No comparison. FINDINGS: The parotid glands appear unremarkable and symmetric. Submandibular glands are somewhat elongated, bu t are symmetric and unremarkable. Review of the thyroid reveals a small low density nodule in the left lobe of the thyroid measuring ap proximately 8.0 mm. Nasopharynx unremarkable. Base of tongue obscured by spray artifact from dental appliance. Geniohyoid and mylohyoid musculature appear unremarkable. Waldeyer's ring is symmetric. The palatine tonsils are unremarkable. Hypopharynx and larynx unremarkable. Bulb Farmworker space, parapharyngeal space, and retropharyngeal space unremarkable. Review of lymph node levels show no significant Level I lymph nodes. The Level II jugulodigastric nod es are nonspecific. The largest is on the left and measures approximately 1.0 cm in the AP dimension. This is near the site of the skin marker and may correspond to the palpable abnormality. This lymph node measures 1.3 cm craniocaudal dimension x 1.0 cm AP dimension. It lies just anterior to the left internal jugular vein and just lateral to the carotid sheath. The corresponding lymph node on the rig ht measures approximately 7-8 mm AP dimension x 1.1 cm craniocaudal and there is a second right Level II node more laterally just anterior to the jugular vein and lateral to the carotid sheath measuring 1.0 cm craniocaudal x 6-7 mm AP. No significant Level III or Level IV lymph nodes identified. No Level V adenopathy. The paranasal sinuses and mastoids are well aerated. Degenerative changes in the cervical spine are most pronounced on the left at C4-5 where there is fac et and uncinate hypertrophy resulting in left foraminal stenosis. There is atherosclerotic calcification in both carotid bulbs without evidence of significant stenosis . IMPRESSION: 1. Nonspecific Level II lymph nodes as described above. An enlarged Level II lymph node on the left is near the skin marker and probably corresponds to the palpable abnormality. The skin marker is also near the inferior aspect of the left submandibular gland which could potentially represent the palpa ble abnormality. 2. Small left thyroid nodule. CT CHEST AND ABDOMEN AND PELVIS WITH IV CONTRAST: INDICATION: Staging for colon cancer. Comparison made to CT abdomen and pelvis dated 06/21/2019. FINDINGS: CT CHEST: The lung absilio are well aerated and clear of infiltrate. There is no evidence of effusion. Mild incr eased interstitial thickening peripherally. There is a tiny nodule in the peripheral right middle lob e measuring in the 3.0 mm range which is nonspecific. There are other tiny scattered nodules in the 1 -2 mm range which are nonspecific. The mediastinum is unremarkable with no adenopathy. Mild atherosclerotic changes in the thoracic aort a. Osseous structures unremarkable. No evidence of axillary adenopathy. IMPRESSION: Unremarkable CT chest. A tiny, nonspecific nodule in the right middle lobe measuring in the 2-3 mm ra nge is noted. CT ABDOMEN AND PELVIS: The liver, spleen, and pancreas are unremarkable. Adrenal glands are normal. Stomach and duodenum are unremarkable. Kidneys are unremarkable with symmetric function. There is a low density in the inferi or pole of the left kidney measuring 1.2 cm consistent with a small renal cyst. Small bowel loops show nonspecific distention without dilatation. No focal mural thickening. There is a colostomy in the right mid abdomen. The left colon appears to be reanastomosed with surgic al changes seen at the rectosigmoid level. There is a large amount of stool in a dilated right colon. Colostomy function should be assessed. Aorta shows atherosclerotic change. No aneurysm. No mass or adenopathy. Images through the pelvis show evidence of hysterectomy. The urinary bladder is unremarkable. Osseous structures unremarkable. IMPRESSION: Large amount of stool in a dilated right colon. Colostomy function should be assessed. The small angelique l loops show nonspecific distention without dilatation. POS: [facility]
== END 2019-12-08 08:31 | disposition home or self-care (01) ==
LOC: CT 08:30
PROVIDERS: ATTEND Internal Medicine Hematology & Oncology
DX: C18.7 Malignant neoplasm of sigmoid colon (principal); R59.0 Localized enlarged lymph nodes; E04.1 Nontoxic single thyroid nodule; R91.1 Solitary pulmonary nodule; K59.00 Constipation, unspecified; Z93.3 Colostomy status
CPT/HCPCS: 70491; 71260; 74177

== ENCOUNTER 2019-12-13 06:23 | Day surgery (SDC) | payer OTHER ==
[2019-12-12 09:29] VITALS: BMI 22.1
[2019-12-13] MEDS ORDERED: Bupivacaine PF 0.5% 30 ML VIAL ONE (06:40)
[2019-12-13] MEDS ORDERED: Lidocaine 2% PF 5 ML VIAL ONE (06:40)
[2019-12-13] MEDS ORDERED: Midazolam HCl 2 mg/2 ml Vial ONE (06:58)
[2019-12-13] MEDS ORDERED: Fentanyl 100 MCG/2 ML VIAL ONE (06:58)
[2019-12-13] MEDS ORDERED: Lidocaine 1% w/Epinephrine 1:100K 20 ML VIAL ONE (07:14)
--- NOTE | 2019-12-13 08:55 | OP ---
DATE OF PROCEDURE: 12/13/2019 PREOPERATIVE DIAGNOSES: Stage III colon cancer, status post resection and colostomy. Eight months duration intermittently palpable left mid neck lesion. CAT scan reveals a 1 cm lymph node, probably not clinically significant. No other abnormalities noted. POSTOPERATIVE DIAGNOSES: Stage III colon cancer, status post resection and colostomy. Eight months duration intermittently palpable left mid neck lesion. CAT scan reveals a 1 cm lymph node, probably not clinically significant. No other abnormalities noted. PROCEDURE PERFORMED: Right subclavian vein low-profile MediPort, fluoroscopy used, decision made not to excise the lymph node as I could not palpate it and the CAT scan actually was not clinically significant. ANESTHESIA: Intravenous sedation, local 0.5% Marcaine 30 mL mixed with 1% Xylocaine with epinephrine 20 mL. DESCRIPTION OF PROCEDURE: The patient was taken to the operating room where under intravenous sedation, her neck and chest were prepared with ChloraPrep and draped in routine fashion. Exam of the left side of the neck, I could not palpate the intermittently palpable node the patient described and given the benign nature on the CAT scan, biopsy was not undertaken. Local anesthetic was infiltrated in the skin and subcutaneous tissue about the operative site. An infraclavicular approach made to cannulate the subclavian vein, obtaining good routine venous blood. J-wire threaded, trocar catheter removed. Skin site was enlarged sharply down through skin and subcutaneous tissue, pectoralis fascia creating a pocket using blunt and sharp dissection, noting good hemostasis. Dilator and Peel-Away sheath placed over the J-wire in the subclavian vein. J-wire and dilator removed. Catheter placed with the Peel-Away sheath. Peel-Away sheath removed. Catheter tip properly positioned in the superior vena cava under fluoroscopic visualization. Catheter tailored to length, connected to the MediPort, placed in subcutaneous pocket and secured with 2 interrupted sutures of 3-0 Prolene. Subcutaneous tissue was approximated with 3-0 Monocryl, skin with subdermal 4-0 Monocryl and Roby glue applied. MediPort accessed with a Figueroa needle, aspirated blood, flushed with heparinized saline solution. Final fluoroscopic images revealed good line and placement. The patient tolerated the procedure well. Job ID: [id number]
[2019-12-13] MEDS ORDERED: PROPOFOL 200 MG/20 ML VIAL ONE (12:33)
== END 2019-12-13 10:08 | disposition home or self-care (01) ==
LOC: SDC 06:23
PROVIDERS: ATTEND Specialist
PROC: 02HV33Z Insertion of Infusion Device into Superior Vena Cava, Percutaneous Approach (ICD-10-PCS; principal; 2019-12-13)
DX: C18.7 Malignant neoplasm of sigmoid colon (principal); R22.1 Localized swelling, mass and lump, neck; F17.210 Nicotine dependence, cigarettes, uncomplicated; Z93.2 Ileostomy status
CPT/HCPCS: C1788; J0690; J1642; J2001; J2250; J2704; J3010; S0020

== ENCOUNTER 2020-01-06 00:13 | Emergency (ER) | payer OTHER ==
--- NOTE | 2020-01-06 08:01 | RAD ---
RADIOGRAPH CHEST 1 VIEW: DATE: 01/06/2020 HISTORY: 59-year-old female with generalized weakness FINDINGS: There are no airspace densities, pulmonary edema, pneumothorax, or cardiomegaly. The lateral costophr enic angles are sharp. Cardiac mediastinal silhouette is narrowed. No hilar mass. Right subclavian implantable vascular access port with distal tip at SVC. IMPRESSION: 1. No acute cardiopulmonary findings. 2. Right subclavian implantable vascular access port.
== END 2020-01-06 02:23 | disposition left against medical advice (07) ==
LOC: ERS 00:13
DX: R06.02 Shortness of breath (principal); F32.9 Major depressive disorder, single episode, unspecified; C18.9 Malignant neoplasm of colon, unspecified; F17.210 Nicotine dependence, cigarettes, uncomplicated; Z79.899 Other long term (current) drug therapy
CPT/HCPCS: 71045; 93005

== ENCOUNTER 2020-02-08 12:17 | Emergency (ER) | payer OTHER ==
[2020-02-08] MEDS ORDERED: Ibuprofen 200 MG TAB ONE (13:32)
--- NOTE | 2020-02-09 07:28 | RAD ---
Exam:Left femur 2 views HISTORY: Pain. COMPARISON: None FINDINGS: No fracture, cortical irregularity or periosteal reaction. IMPRESSION: No fracture.
== END 2020-02-08 14:01 | disposition home or self-care (01) ==
LOC: ERS 12:17
DX: S70.02XA Contusion of left hip, initial encounter (principal); F32.9 Major depressive disorder, single episode, unspecified; F17.210 Nicotine dependence, cigarettes, uncomplicated; Z79.899 Other long term (current) drug therapy; Y00.XXXA Assault by blunt object, initial encounter

== ENCOUNTER 2020-04-02 09:38 | Outpatient (CLI) | payer OTHER ==
[2020-04-02 14:06] LABS: Hemoglobin A1c 5.2 % (4.0-6.0)
[2020-04-02 14:07] LABS: Anion Gap 14 mmol/L (10-20); BUN (Urea Nitrogen) 9 mg/dL (9.8-20.1); Calc. Creatinine Clearance 0 mL/min (70-130); Calcium 9.8 mg/dL (7.8-10.44); Carbon Dioxide 26 mmol/L (22-29); Chloride 103 mmol/L (98-107); Estimated GFR-MDRD 80; Glucose 88 mg/dL (70-105); Potassium 3.7 mmol/L (3.5-5.1); Sodium 139 mmol/L (136-145)
[2020-04-03 14:13] LABS: SARS-CoV-2 MS2 Positive; SARS-CoV-2 N Gene Negative; SARS-CoV-2 S Gene Negative; SARS-CoV-2 by NAA Not Detected (NotDetected); SARS-CoV-2 orf1ab Negative
== END 2020-04-02 09:39 | disposition home or self-care (01) ==
LOC: LABBT 09:38
PROVIDERS: ATTEND Specialist
DX: Z01.812 Encounter for preprocedural laboratory examination (principal); Z11.59 Encounter for screening for other viral diseases; Z85.038 Personal history of other malignant neoplasm of large intestine
CPT/HCPCS: 80048; 82378; 83036; 85025; 87635; U0003

== ENCOUNTER 2020-06-30 12:50 | Inpatient (IN) | payer OTHER ==
[2020-06-30] MEDS ORDERED: Ondansetron PF 4 MG/2 ML Vial ONE (13:15)
[2020-06-30] MEDS ORDERED: Fentanyl 100 MCG/2 ML VIAL ONE ×3 (13:15→21:41)
[2020-06-30] MEDS ORDERED: Piperacillin/Tazobactam 4.5 GM VIAL ONE (13:27)
[2020-06-30 13:45] LABS: Hemoglobin 14.9 g/dL (12.0-16.0); Mean Corpuscular HGB CONC 34.2 g/dL (32.0-36.0); Mean Corpuscular Hemoglobin 30.5 pg (27.0-31.0); Mean Corpuscular Volume 89.2 fL (78.0-98.0); Mean Platelet Volume 7.8 fL (7.4-10.4); Platelet Count 363 thou/uL (130-400); RBC Distribution Width 12.4 % (11.5-14.5); Red Blood Cell (RBC) Count 4.87 mill/uL (4.20-5.40); White Blood Cell (WBC) Count 18.7 thou/uL (4.8-10.8)
[2020-06-30 13:58] LABS: Band 11 % (5-11); Eosinophils 1 % (0-10); Lymphocytes 16 % (21-51); MDiff Complete? YES; Monocytes 1 % (0-10); Neutrophil 71 % (42-75); Platelet Morphology Comment Appears Adequate; RBC Morphology Normal
[2020-06-30 14:06] LABS: ALT (SGPT) 17 U/L (8-55); AST (SGOT) 16 U/L (5-34); Albumin 4.3 g/dL (3.5-5.0); Alkaline Phosphatase 111 U/L (40-110); Anion Gap 19 mmol/L (10-20); BUN (Urea Nitrogen) 16 mg/dL (9.8-20.1); Bilirubin, Total 1.4 mg/dL (0.2-1.2); Calc. Creatinine Clearance 0 mL/min (70-130); Calcium 9.7 mg/dL (7.8-10.44); Carbon Dioxide 20 mmol/L (22-29); Chloride 103 mmol/L (98-107); Estimated GFR-MDRD 82; Globulin 3.1 g/dL (2.4-3.5); Glucose 92 mg/dL (70-105); Potassium 3.8 mmol/L (3.5-5.1); Protein, Total 7.4 g/dL (6.0-8.3); Sodium 138 mmol/L (136-145)
[2020-06-30 14:19] LABS: Bilirubin Negative (Negative); Blood, Urine Negative (Negative); Clarity Clear (Clear); Glucose, Urine (Dipstick) Normal (Negative); Ketone, Urine Negative (Negative); Leukocyte Negative Leu/uL (Negative); Nitrite Negative (Negative); Protein, Urine (Dipstick) 20 mg/dL (Neg-Trace); Specific Gravity, Urine 1.028 (1.002-1.036); Urobilinogen 3 mg/dL (Less than 2); pH, Urine 5.5 (5.0-9.0)
[2020-06-30] MEDS ORDERED: Iopamidol-370 76% 500 ML 1 ML ONE (15:23)
[2020-06-30] MEDS ORDERED: Iopamidol 370 76% 50 ML VIAL FS ONE (15:23)
--- NOTE | 2020-06-30 16:18 | CT ---
CT OF THE ABDOMEN AND PELVIS WITH IV CONTRAST INDICATION: 60-year-old female with lower abdominal pain COMPARISON: Prior CT of the chest, abdomen and pelvis dated December 08, 2019 FINDINGS: ABDOMEN: Lung bases: Mild bibasilar subsegmental atelectasis Liver: Stable tiny hypodensity within the posterior right hepatic lobe. Gallbladder: Moderately distended. Pancreas: Normal. Adrenal glands: Normal. Spleen: Normal. Kidneys and ureters: Normal. No hydronephrosis. Vasculature: There are moderate vascular calcifications seen involving the visualized vasculature. Lymph nodes:No lymphadenopathy. Free fluid in abdomen:No free fluid is evident. PELVIS: Small and large bowel: There is a moderate amount of retained stool within the colon. There is postpr ocedural change of a partial colectomy with primary anastomosis at the colorectal junction. Appendix:Not definitely seen Bladder: Moderately distended Rectal and perirectal soft tissues:Normal. Reproductive structures: Not visible Free fluid in pelvis: No free fluid is evident. Lymphadenopathy pelvis: No lymphadenopathy is evident. Osseous structures: No acute osseous abnormality. No destructive osteolytic or osteoblastic lesion i s identified. There is scattered degenerative and osteoarthritic changes. Soft tissues:Normal. IMPRESSION: 1. No definite CT explanation for patient's abdominal pain. 2. Moderate distention of the bladder. 3. Moderate distention of the gallbladder and slight prominence of the intrahepatic or extrahepatic b iliary ducts recommend correlation with the clinical examination for any symptoms and signs of cholecystitis or possible choledocholithiasis. Gallbladder ultrasound may be helpful for further eval uation if clinically indicated. 4. Moderate amount retained stool within the colon.
[2020-06-30 16:56] LABS: Lactic Acid 0.9 mmol/L (0.5-2.2)
[2020-06-30] MEDS ORDERED: Vancomycin 1 GM/200 ML BAG ONE (17:37)
--- NOTE | 2020-06-30 18:06 | ULT ---
RIGHT UPPER QUADRANT ULTRASOUND CLINICAL HISTORY: Abdominal pain. COMPARISON: CT the abdomen and pelvis dated June 29, 2020 FINDINGS: Liver:Normal echotexture without focal mass. Intrahepatic bile ducts: There is very mild intrahepatic biliary ductal dilatation.; Common bile duct: 2.8 mm. Gallbladder: Layered gallbladder sludges within the gallbladder. Gallbladder wall is upper limits of normal. No pericholecystic fluid is evident. Coates's sign:None Main portal vein:Patent with hepatopedal flow. Pancreas:Largely obscured by overlying bowel gas Right kidney: Right kidney measures 8.2 x 4.5 x 3.7 cm. No focal renal lesion or hydronephrosis. Additional findings: None. IMPRESSION: Layered gallbladder sludge within the gallbladder. No definite sonographic evidence of acute cholecys titis. Mild intrahepatic biliary ductal dilatation with a normal common bile duct. Component of sludge obstr ucting the proximal common bile duct or common hepatic duct cannot be entirely excluded. An MRCP examination may be helpful for improved characterization. Correlation with the clinical examination a nd laboratory evaluation is recommended.
[2020-06-30] MEDS ORDERED: Norepinephrine 8 MG/0.9% NS 250 ML ONE (19:05)
[2020-06-30] MEDS ORDERED: Ketamine 50 MG/ML (10ML VIAL) ONE (19:49)
--- NOTE | 2020-06-30 20:59 | RAD ---
Chest AP view INDICATION: Confirm central line placement COMPARISON: December 2019 FINDINGS: Lungs: The lungs are clear Cardiac silhouette: The cardiomediastinal silhouette appears within normal limits. Pulmonary vasculature: Normal Pleural spaces: No pleural effusion or pneumothorax is demonstrated. Upper abdomen: No abnormality seen. Osseous structures: No acute osseous abnormality.Ossific density in the proximal right humerus is st able. Additional findings: New right IJ central venous catheter projecting region of the SVC. IMPRESSION: No acute cardiopulmonary abnormality. New right IJ central venous catheter as above.
[2020-06-30] MEDS ORDERED: Calcium Carbonate 500 MG ChewTAB PO PRN (21:34)
[2020-06-30] MEDS ORDERED: Ondansetron ODT 4 MG TAB PO PRN (21:34)
[2020-06-30] MEDS ORDERED: Acetaminophen 650 MG Suppository PR PRN (21:34)
[2020-06-30] MEDS ORDERED: HYDROcodone/Acetaminophen 7.5/325 mg Tablet PO PRN (21:34)
[2020-06-30] MEDS ORDERED: Acetaminophen 325 MG TAB PO PRN (21:34)
[2020-06-30] MEDS ORDERED: Lorazepam 2 MG/ML VIAL ONE (21:41)
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
--- NOTE | 2020-06-30 23:55 | CON ---
DATE OF CONSULTATION: 06/30/2020 REQUESTING PHYSICIAN: Dr. Churchill. REASON FOR CONSULTATION: Abdominal pain, question of possible cholangitis. HISTORY OF PRESENT ILLNESS: Milena Bell is a 60-year-old woman, seen in the outpatient setting by my colleague, Dr. Kai Hayes. She has a history significant for adenocarcinoma of the sigmoid colon, for which she underwent resection and ileostomy in October 2019. She underwent chemotherapy treatments through December and January of this year and finally had ileostomy takedown in March after flexible sigmoidoscopy. Noted at that time, the bowel preparation was poor due to the diverting ileostomy, and Dr. Hayes had planned to bring her back for full colonoscopy, which was actually planned for next week. The patient reports she had been doing quite well up until this morning. This morning, she had a fairly acute onset of abdominal pain in the lower abdomen, a little bit more on the left. This quickly escalated. Upon presentation, she was hypotensive with systolic blood pressures in the 70 to 90 range. She has not been tachycardic. She has received a couple of units of IV fluid with some modest response, and has just been started on Levophed. She has been afebrile. She is receiving vancomycin and Zosyn empirically. Notably, there has been no melena or hematochezia. She had a normal bowel movement earlier today just prior to symptom onset. There has been no nausea or vomiting. Laboratory studies do show leukocytosis with WBC 18.7. Total bilirubin is 1.4, but LFTs are otherwise normal with AST 16, ALT 17, and alkaline phosphatase 111. Lactic acid is only 0.9. She just got a central line and is being admitted to the ICU and a CT of the abdomen and pelvis demonstrates some moderate distention of the gallbladder with slight prominence of the intra and extrahepatic bile ducts. No other pathology noted, though I note she did not receive oral contrast. Followup abdominal ultrasound showed normal appearing liver and common bile duct measuring only 2.8 mm. There is layering gallbladder sludge, but no pericholecystic fluid. REVIEW OF SYSTEMS: Full review of systems including constitutional, head, eyes, ears, nose, throat, GI, , cardiovascular, respiratory, musculoskeletal, and neurologic systems is negative except as noted in the HPI. PAST MEDICAL HISTORY: 1. Adenocarcinoma of the sigmoid colon, resected in October 2019, followed by chemotherapy in December and January 2020. 2. Ileostomy takedown in March 2020. 3. Depression. 4. . 5. Hysterectomy. ALLERGIES: NO KNOWN DRUG ALLERGIES. OUTPATIENT MEDICATIONS: 1. Paroxetine. 2. Nortriptyline. SOCIAL HISTORY: Positive for tobacco use. No alcohol or drug use. FAMILY HISTORY: Noncontributory. PHYSICAL EXAMINATION: VITAL SIGNS: Temperature 98.0, pulse 83, blood pressure 120/72, and 91% oxygen saturation on room air. GENERAL: A 60-year-old woman appearing chronically ill, lying in bed, in mild distress from abdominal pain. SKIN: No jaundice. No rashes were palpable. EYES: No scleral icterus. Extraocular movements intact. ENT: Mucous membranes moist. No oral lesions. LYMPH: No submandibular or supraclavicular lymphadenopathy. THYROID: Nontender to palpation. HEART: Regular rate and rhythm. LUNGS: Clear to auscultation bilaterally. ABDOMEN: Nondistended. Surgical scar is well healed. Bowel sounds are present. Soft. Tender to palpation diffusely but most prominently in the lower abdomen at midline, but she does endorse some tenderness to deep palpation elsewhere including the right and left upper quadrants. No guarding or rebound tenderness. EXTREMITIES: No peripheral edema. VESSELS: Radial pulses are 2+ bilaterally. NEURO: Cranial nerves 2 through 12 intact bilaterally. No focal deficits. LABORATORY STUDIES: WBC elevated at 18.7, hemoglobin 14.9, and platelets 363. Sodium 138, potassium 3.8, BUN 16, creatinine 0.73, total bilirubin 1.4, alkaline phosphatase 111, AST 16, ALT 17, and albumin 4.3. Lactic acid initially 2.1, now down to 0.9. Urinalysis negative. Blood and urine cultures are pending. IMAGING STUDIES: Chest x-ray shows clear lung basilio (this is my reading of the images, final report is not yet back). Abdominal ultrasound shows normal-appearing liver, common bile duct only 2.8 mm. There is some gallbladder sludge. The gallbladder wall is the upper limits of normal. There is no pericholecystic fluid. CT of the abdomen and pelvis demonstrates moderate gallbladder distention, some slight prominence of the intra and extrahepatic bile ducts, moderate distention of the urinary bladder. No free fluid. No lymphadenopathy. ASSESSMENT AND PLAN: 1. Lower abdominal pain, acute today. 2. Hypotension. 3. Leukocytosis. 4. History of sigmoid adenocarcinoma, status post resection in October 2019 and ileostomy takedown in March 2020. The etiology of the patient's pain is a mystery based on evaluation so far. The concern was raised for possible cholangitis given suggestion of mild biliary prominence on CT imaging, but with location of the pain being so far down in the lower abdomen, the essentially normal liver tests with normal transaminases, AST 16, ALT 17, total bilirubin only 1.4, also the lack of biliary dilation demonstrated on abdominal ultrasound, this is all quite difficult to attribute to cholangitis. She is hypotensive, but lactic acid is normal. We are not going to plan for any endoscopic procedures at this time. Rather, continue with aggressive supportive care, sepsis protocol, getting empiric antibiotics. Follow up culture results. Trend the LFTs in the morning, and agree with planned magnetic resonance cholangiopancreatography for more definitive biliary imaging. If this is all unrevealing and significant pain symptoms persist, consider repeating CT with oral contrast, and seeking surgical consultation as well. Thank you for the consultation. GI will follow along closely. Please feel free to call anytime with questions or concerns. Job ID: [id number]
[2020-07-01] MEDS: Piperacillin/Tazobactam 4.5 GM in Sodium Chloride 0.9% 100 ML IVPB SCH ×4 (01:27→17:03)
[2020-07-01] MEDS: Sodium Chloride 0.9% 1,000 ML IV SCH ×3 (01:27→18:19)
[2020-07-01] MEDS ORDERED: Norepinephrine 8 MG/0.9% NS 250 ML IVPB SCH (04:00)
[2020-07-01 05:09] LABS: Band 3 % (5-11); Eosinophils 1 % (0-10); Hemoglobin 12.4 g/dL (12.0-16.0); Lymphocytes 11 % (21-51); MDiff Complete? YES; Mean Corpuscular HGB CONC 33.6 g/dL (32.0-36.0); Mean Corpuscular Hemoglobin 30.5 pg (27.0-31.0); Mean Corpuscular Volume 90.8 fL (78.0-98.0); Mean Platelet Volume 7.1 fL (7.4-10.4); Monocytes 6 % (0-10); Neutrophil 79 % (42-75); Platelet Count 274 thou/uL (130-400); Platelet Morphology Comment Appears Adequate; RBC Distribution Width 12.3 % (11.5-14.5); RBC Morphology Normal; Red Blood Cell (RBC) Count 4.08 mill/uL (4.20-5.40); White Blood Cell (WBC) Count 13.4 thou/uL (4.8-10.8)
[2020-07-01 05:23] LABS: ALT (SGPT) 24 U/L (8-55); AST (SGOT) 21 U/L (5-34); Albumin 3.3 g/dL (3.5-5.0); Alkaline Phosphatase 92 U/L (40-110); Anion Gap 11 mmol/L (10-20); BUN (Urea Nitrogen) 9 mg/dL (9.8-20.1); Calc. Creatinine Clearance 60 mL/min (70-130); Calcium 8.1 mg/dL (7.8-10.44); Carbon Dioxide 25 mmol/L (22-29); Chloride 106 mmol/L (98-107); Estimated GFR-MDRD 87; Globulin 2.3 g/dL (2.4-3.5); Glucose 93 mg/dL (70-105); Potassium 3.4 mmol/L (3.5-5.1); Protein, Total 5.6 g/dL (6.0-8.3); Sodium 139 mmol/L (136-145)
[2020-07-01] MEDS: Morphine 2 MG/ML VIAL SLOW IVP PRN ×2 (08:56→16:33)
[2020-07-01] MEDS: Docusate Calcium (SURFAK) 240 MG CAP PO SCH ×2 (08:58→20:09)
[2020-07-01] MEDS: Famotidine/PF 20 mg/2ml Vial SLOW IVP SCH ×2 (08:59→20:08)
--- NOTE | 2020-07-01 10:16 | PRG ---
DATE OF SERVICE: 07/01/2020 SUBJECTIVE: Ms. Bell continues to have abdominal pain, most prominent in the lower abdomen. Morphine is helping, but pain persists. She is a bit sleepy. There has been no vomiting. No diarrhea. She remains on low-dose Levophed drip, otherwise stable. Afebrile. OBJECTIVE: VITAL SIGNS: Temperature 98.5, pulse 75, blood pressure 105/67, 95% oxygen saturation on room air. GENERAL: Sleepy but arousable. Able to answer questions. HEART: Regular rate and rhythm. LUNGS: Clear to auscultation bilaterally. ABDOMEN: Nondistended. Bowel sounds are hypoactive, but present. Diffuse tenderness to palpation particularly in the lower abdomen, but no guarding or rebound tenderness. EXTREMITIES: No peripheral edema. LABORATORY STUDIES: WBC down to 13.4, hemoglobin 12.4, platelets 274. Sodium 139, potassium 3.4, BUN 9, creatinine 0.69, total bilirubin 2.0, but transaminases all remain normal. Alkaline phosphatase 92, AST 21, ALT 24. ASSESSMENT AND PLAN: 1. Lower abdominal pain. 2. Hypotension. 3. Leukocytosis, improved with empiric vancomycin and Zosyn. Note that blood cultures showed no growth to date. Lactic acid is normal. 4. History of sigmoid adenocarcinoma. The patient was set to have colonoscopy with Dr. Hayes later this week. 5. Gallbladder sludge. This was demonstrated on abdominal ultrasound. The concern from the emergency department was possible cholangitis, but with normal common bile duct on the ultrasound, total bilirubin only 2.0, normal transaminases, pain primarily in the lower abdomen, I have low suspicion for cholangitis. I do think it would be worthwhile to get MRCP today for more definitive biliary imaging. If this is all unrevealing and significant pain symptoms persist, consider repeating CT with oral contrast. GI will continue to follow. Please call anytime with questions or concerns. Job ID: [id number]
[2020-07-01] MEDS: Ondansetron PF 4 MG/2 ML Vial IVP PRN (11:15)
[2020-07-01] MEDS: HYDROcodone/Acetaminophen 7.5/325 mg Tablet PO PRN (11:15)
[2020-07-01] MEDS: Enoxaparin Sodium 40 MG/0.4 ML SYRINGE SC SCH (13:52)
[2020-07-01] MEDS: Ketorolac Tromethamine 30 MG/ML VIAL IVP SCH ×2 (14:44→20:08)
--- NOTE | 2020-07-01 14:58 | PDOC.HOSPP ---
- Subjective Encounter Date: 07/01/20 Encounter Time: 14:53 Subjective: This is a 60-year-old woman whose medical history includes prior sigmoid cancer with previous surgical intervention and chemotherapy. She presented to the hospital with abdominal pain. There was some concerns about gallbladder pathology and GI service has seen her as well. However her LFTs within normal limits. She does have evidence of constipation on the CT with moderate stool retention. GI and general surgery evaluation is ongoing. - Objective Vital Signs & Weight: Vital Signs (12 hours) Temp 07/01/20 12:00 98.8 F 07/01/20 08:00 98.5 F 07/01/20 04:00 98.1 F Weight Weight 94 lb 12.78 oz Most Recent Monitor Data Heart Rate from ECG 84 NIBP 100/59 NIBP BP-Mean 72 Respiration from ECG 15 SpO2 95 I&O: 06/30/20 07/01/20 07/02/20 07:59 06:59 06:59 Intake Total Output Total 280 Balance -280 Result Diagrams: 07/01/20 04:45 07/01/20 04:45 Radiology Reviewed by me: Yes EKG Reviewed by me: Yes Hospitalist ROS - Review of Systems ROS unobtainable: due to mental status Constitutional: reports: fever Gastrointestinal: reports: nausea, abdominal pain, constipation Neurological: reports: weakness - Medication Medications: Active Medications Generic Name Dose Route Start Last Admin Trade Name Freq PRN Reason Stop Dose Admin Hydrocodone Bitart/Acetaminophen 2 tab 06/30/20 21:34 07/01/20 11:15 Hydrocodone/Acetaminophen 7.5/325 Mg Tablet PO 2 tab Q4H PRN Administration Severe Pain (7-10) Docusate Calcium 240 mg 07/01/20 09:00 07/01/20 08:58 Docusate Calcium (Surfak) 240 Mg Cap PO Not Given BID DENILSON Enoxaparin Sodium 40 mg 07/01/20 09:00 07/01/20 13:52 Enoxaparin Sodium 40 Mg/0.4 Ml Syringe SC 40 mg 0900 DENILSON Administration Famotidine 20 mg 07/01/20 09:00 07/01/20 08:59 Famotidine/Pf 20 Mg/2ml Vial SLOW IVP 20 mg Q12HR DENILSON Administration Sodium Chloride 1,000 mls @ 100 mls/hr 06/30/20 21:45 07/01/20 08:58 Normal Saline 0.9% IV 1,000 mls .Q10H DENILSON Administration Piperacillin Sod/Tazobactam 100 mls @ 200 mls/hr 06/30/20 23:59 07/01/20 11:56 Sod 4.5 gm/ Sodium Chloride IVPB 100 mls Q6HR DENILSON Administration Ketorolac Tromethamine 15 mg 07/01/20 15:00 07/01/20 14:44 Ketorolac Tromethamine 30 Mg/Ml Vial IVP 07/06/20 15:01 15 mg Q6H DENILSON Administration Morphine Sulfate 2 mg 06/30/20 21:42 07/01/20 08:56 Morphine 2 Mg/Ml Vial SLOW IVP 2 mg Q4H PRN Administration Pain Ondansetron HCl 4 mg 06/30/20 21:34 07/01/20 11:15 Ondansetron Pf 4 Mg/2 Ml Vial IVP 4 mg Q6H PRN Administration Nausea/Vomiting - Exam General Appearance: awake alert, ill appearing Eye: PERRL ENT: normocephalic atraumatic Neck: supple, symmetric, no lymphadenopathy Heart: RRR Respiratory: CTAB Gastrointestinal: soft, normal bowel sounds, no guarding, tender to palpation Psychiatric: somnolent, lethargic Hosp A/P (1) Intractable abdominal pain Code(s): R10.9 - UNSPECIFIED ABDOMINAL PAIN Status: Acute Plan: No definite pathology identified just yet. There was some concerns early about gallbladder issues but ultrasound of the gallbladder did not confirm that. She does have evidence of moderate constipation. Surgery was consulted to evaluate her further. (2) Colon cancer Code(s): C18.9 - MALIGNANT NEOPLASM OF COLON, UNSPECIFIED Status: Chronic Qualifiers: Colon location: sigmoid Qualified Code(s): C18.7 - Malignant neoplasm of sigmoid colon Plan: She has been treated in the past. She does follow-up outpatient with GI and oncology services. Unfortunately she continues to smoke. (3) Bipolar disorder Code(s): F31.9 - BIPOLAR DISORDER, UNSPECIFIED Status: Chronic Qualifiers: Current bipolar episode type: mixed Current episode severity: moderate Plan: We will resume home medicine once she is able to tolerate it. (4) Constipation by delayed colonic transit Code(s): K59.01 - SLOW TRANSIT CONSTIPATION Status: Acute - Plan #1. Abdominal pain. Unclear etiology. She does have evidence of moderate constipation. GI and general surgery evaluation is ongoing. I will continue her on supportive care with pain control, antiemetics if she needs it, continue IV fluids. #2. Moderate constipation #3. History of colon cancer. She has been previously treated. 4. Tobacco dependence.
--- NOTE | 2020-07-01 15:52 | PDOC.GSCN ---
Surgery Consult: HPI - Consult details Date: 07/01/20 Time: 15:50 Reason for consult: abdominal pain History of present illness: 07/01/20 15:50 60-year-old female presents with 1 day of abdominal pain. The pain is described as stabbing and intermittent. It is rated as 8/10 on a pain scale and at the time of presentation was located in the lower abdomen, mostly in the left lower quadrant. She denies fever, chills, nausea, vomiting, or diarrhea. Of note she was felt to be hypotensive in the emergency department with systolic blood press ures in the 90s. She was admitted to the intensive care unit under the hospitalist service and begun on Zosyn and vancomycin. After discussing the patient with her daughter, her blood pressure is normally in the 90s. Interview the patient was quite difficult due to her somnolence, and much of her recent history is taken from a discussion with her daughter. According to her daughter, she has had intermittent abdominal pain for approximately [address] scan of the abdomen demonstrates a significant stool burden; however, neither the patient nor her daughter are able to relate the quality of the patient's stools recently. The patient did report that she did have a bowel movement on the morning of presentation. On interview, the patient's pain had shifted to the mid abdomen. Surgery Consult: ROS - Review of Systems ROS unobtainable: other (somnolent and uncooperative) Surgery Consult: [facility] Past Medical History: BPD Colon cancer Past Surgical History: hysterectomy sigmoidectomy with diverting ileostomy and subsequent reversal (Dr. Pisano) - Past Family History Pertinent family history: Cancer - Past Social History Smoking Status: Current every day smoker Alcohol Use: none Drug Use History: none Living Situation: independent Surgery Consult: Exam - Vital signs Vital signs: Vital Signs - Most Recent Temp Pulse Resp BP Pulse Ox 98.8 F 95 07/01/20 12:00 07/01/20 08:00 - Physical Exam General: moderate distress, cachectic (somnolent) Eye: normal ocular movement, PERRL ENT: no congestion, no hearing loss, normal mucosa, normal nares, normal pinna Respiratory: clear to auscultation, clear to percussion, normal expansion, normal respiratory effort Abdomen: soft, tender, surgical scars (Systolic ejection murmer) Integumentary: no abnormal pigmentation, no growths, no rash Neurologic: normal coordination, normal sensation Musculoskeletal: normal gait, normal posture Psychiatric: oriented to time (flat affect), oriented to person, oriented to place Surgery Consult: Meds - Medications Medications: Current Medications Acetaminophen (Acetaminophen 325 Mg Tab) 650 mg PO Q4H PRN PRN Reason: Headache/Fever/Mild Pain (1-3) Acetaminophen (Acetaminophen 650 Mg Suppository) 650 mg NM Q4H PRN PRN Reason: Headache/Fever/Mild Pain (1-3) Hydrocodone Bitart/Acetaminophen (Hydrocodone/Acetaminophen 7.5/325 Mg Tablet) 1 tab PO Q4H PRN PRN Reason: Moderate Pain (4-6) Hydrocodone Bitart/Acetaminophen (Hydrocodone/Acetaminophen 7.5/325 Mg Tablet) 2 tab PO Q4H PRN PRN Reason: Severe Pain (7-10) Last Admin: 07/01/20 11:15 Dose: 2 tab Documented by: Bisacodyl (Bisacodyl 10 Mg Supp) 10 mg NM Q8H PRN PRN Reason: Constipation Calcium Carbonate (Calcium Carbonate 500 Mg Chewtab) 1,000 mg PO Q4H PRN PRN Reason: Heartburn or Indigestion Docusate Calcium (Docusate Calcium (Surfak) 240 Mg Cap) 240 mg PO BID [facility] Last Admin: 07/01/20 08:58 Dose: Not Given Documented by: Enoxaparin Sodium (Enoxaparin Sodium 40 Mg/0.4 Ml Syringe) 40 mg SC 0900 [facility] Last Admin: 07/01/20 13:52 Dose: 40 mg Documented by: Famotidine (Famotidine/Pf 20 Mg/2ml Vial) 20 mg SLOW IVP Q12HR [facility] Last Admin: 07/01/20 08:59 Dose: 20 mg Documented by: Sodium Chloride (Normal Saline 0.9%) 1,000 mls @ 100 mls/hr IV .Q10H [facility] Last Admin: 07/01/20 08:58 Dose: 1,000 mls Documented by: Piperacillin Sod/Tazobactam (Sod 4.5 gm/ Sodium Chloride) 100 mls @ 200 mls/hr IVPB Q6HR [facility] Last Admin: 07/01/20 11:56 Dose: 100 mls Documented by: Norepinephrine Bitartrate (Levophed) 250 mls @ 0 mls/hr IVPB INF DENILSON; Protocol Ketorolac Tromethamine (Ketorolac Tromethamine 30 Mg/Ml Vial) 15 mg IVP Q6H DENILSON Stop: 07/06/20 15:01 Last Admin: 07/01/20 14:44 Dose: 15 mg Documented by: Morphine Sulfate (Morphine 2 Mg/Ml Vial) 2 mg SLOW IVP Q4H PRN PRN Reason: Pain Last Admin: 07/01/20 08:56 Dose: 2 mg Documented by: Ondansetron HCl (Ondansetron Odt 4 Mg Tab) 4 mg PO Q6H PRN PRN Reason: Nausea/Vomiting Ondansetron HCl (Ondansetron Pf 4 Mg/2 Ml Vial) 4 mg IVP Q6H PRN PRN Reason: Nausea/Vomiting Last Admin: 07/01/20 11:15 Dose: 4 mg Documented by: - Allergies Allergies/Adverse Reactions: Allergies Allergy/AdvReac Type Severity Reaction Status Date / Time No Known Allergies Allergy Verified 07/01/20 01:40 CDT Surgery Consult: Results - Labs Result Diagrams: 07/01/20 04:45 07/01/20 04:45 Lab results: Laboratory Results WBC 13.4 thou/uL (4.8-10.8) H 07/01/20 04:45 RBC 4.08 mill/uL (4.20-5.40) L 07/01/20 04:45 Hgb 12.4 g/dL (12.0-16.0) 07/01/20 04:45 Hct 37.1 % (36.0-47.0) 07/01/20 04:45 MCV 90.8 fL (78.0-98.0) 07/01/20 04:45 MCH 30.5 pg (27.0-31.0) 07/01/20 04:45 MCHC 33.6 g/dL (32.0-36.0) 07/01/20 04:45 RDW 12.3 % (11.5-14.5) 07/01/20 04:45 Plt Count 274 thou/uL (130-400) 07/01/20 04:45 MPV 7.1 fL (7.4-10.4) L 07/01/20 04:45 Neutrophils % (Manual) 79 % (42-75) H 07/01/20 04:45 Band Neuts % (Manual) 3 % (5-11) L 07/01/20 04:45 Lymphocytes % (Manual) 11 % (21-51) L 07/01/20 04:45 Monocytes % (Manual) 6 % (0-10) 07/01/20 04:45 Eosinophils % (Manual) 1 % (0-10) 07/01/20 04:45 Lymphocytes # Not Reportable 06/30/20 13:34 Plt Morphology Comment Appears Adequate 07/01/20 04:45 RBC Morph Comment Normal 07/01/20 04:45 Sodium 139 mmol/L (136-145) 07/01/20 04:45 Potassium 3.4 mmol/L (3.5-5.1) L 07/01/20 04:45 Chloride 106 mmol/L (98-107) 07/01/20 04:45 Carbon Dioxide 25 mmol/L (22-29) 07/01/20 04:45 Anion Gap 11 mmol/L (-20) 07/01/20 04:45 BUN 9 mg/dL (9.8-20.1) L 07/01/20 04:45 Creatinine 0.69 mg/dL (0.6-1.1) 07/01/20 04:45 Estimated GFR (MDRD) 87 07/01/20 04:45 Glucose 93 mg/dL (70-105) 07/01/20 04:45 Lactic Acid 0.9 mmol/L (0.5-2.2) 06/30/20 16:32 Calcium 8.1 mg/dL (7.8-10.44) 07/01/20 04:45 Total Bilirubin 2.0 mg/dL (0.2-1.2) H 07/01/20 04:45 AST 21 U/L (5-34) 07/01/20 04:45 ALT 24 U/L (8-55) 07/01/20 04:45 Alkaline Phosphatase 92 U/L (40-110) 07/01/20 04:45 Serum Total Protein 5.6 g/dL (6.0-8.3) L 07/01/20 04:45 Albumin 3.3 g/dL (3.5-5.0) L 07/01/20 04:45 Globulin 2.3 g/dL (2.4-3.5) L 07/01/20 04:45 Albumin/Globulin Ratio 1.4 g/dL (1.2-2.2) 07/01/20 04:45 Urine Color Dark-Yellow (Yellow) 06/30/20 13:40 Urine Clarity Clear (Clear) 06/30/20 13:40 Urine pH 5.5 (5.0-9.0) 06/30/20 13:40 Ur Specific [place] 1.028 (1.002-1.036) 06/30/20 13:40 Urine Protein 20 mg/dL (Neg-Trace) 06/30/20 13:40 Urine Glucose (UA) Normal mg/dL (Negative) 06/30/20 13:40 Urine Ketones Negative mg/dL (Negative) 06/30/20 13:40 Urine Blood Negative (Negative) 06/30/20 13:40 Urine Nitrite Negative (Negative) 06/30/20 13:40 Urine Bilirubin Negative (Negative) 06/30/20 13:40 Urine Urobilinogen 3 mg/dL (Less than 2) A 06/30/20 13:40 Ur Leukocyte Esterase Negative [place]/uL (Negative) 06/30/20 13:40 - Radiology Interpretation US - abdomen Status: image reviewed by me Additional comments: Ultrasound demonstrates sludge within the gallbladder with mild intrahepatic dilatation. The common bile duct is read as normal CT scan - abdomen Status: image reviewed by me Additional comments: CT of the abdomen and pelvis reviewed as well as radiologist interpretation. Demonstrates a mildly distended gallbladder. Otherwise no etiology for the patient's abdominal pain. It is noted that she has a significant stool burden. Chest x-ray also reviewed as well as radiologist interpretation is negative for any acute cardiopulmonary process. Surgery Consult: A/P - Problem (1) Intractable abdominal pain Current Visit: Yes Code(s): R10.9 - UNSPECIFIED ABDOMINAL PAIN Status: Acute - Plan Plan: 60-year-old female with intractable abdominal pain of uncertain etiology. She has been evaluated by gastroenterology who is recommended MRCP due to the mild intrahepatic dilatation of the biliary system. Will await MRCP results, otherwise, may be due to stool burden. Of note, discussion with the daughter reveals that the patient has "not been the same" since her colon cancer treatment. There may be a psychosomatic elements to the patient's complaints. We will continue to follow.
[2020-07-01] MEDS ORDERED: Ketorolac Tromethamine 30 MG/ML VIAL IVP SCH (18:00)
--- NOTE | 2020-07-01 18:08 | CON ---
DATE OF CONSULTATION: 07/01/2020 CHIEF COMPLAINT: Abdominal pain, hypotension. HISTORY OF PRESENT ILLNESS: The patient is a 60-year-old female, known well to this institution. She has a history of adenocarcinoma of the sigmoid colon, which was resected with a diverting ileostomy in October 2019. She underwent postoperative chemotherapy and ultimately had reversal of her ileostomy at that time. She presents to the hospital with complaints of abdominal pain, which was initially reported to be on the left, although when I saw her, it was described in the mid to upper right abdomen. She was initially hypotensive with blood pressures reportedly in the 70 to 90 range. In the emergency room, she received fluid resuscitation and then was placed on Levophed in addition to empiric antibiotic therapy. The patient has not had history of bright red blood per rectum, melena, nausea, vomiting, or hematemesis. She has undergone CT of the abdomen and pelvis demonstrating mild distention of the gallbladder and some prominence of the intra and extrahepatic bile ducts, although further evaluation is recommended based on the fact that her abdominal sonogram was less impressive. When I saw the patient, she was still complaining of pain. She was off Levophed, although blood pressure is in the mid to low 90s. She was awake, but complained of being sleepy. She states that this pain is similar to what she has noted before. She has reported that she has had a BM within the past 24 hours. SOCIAL HISTORY: The patient is a 60-year-old female. She has a past smoking history. HOME MEDICATIONS: Remarkable for, 1. Paroxetine. 2. Nortriptyline. ALLERGIES: SHE HAS NO REPORTED MEDICATION ALLERGIES. REVIEW OF SYSTEMS: Remarkable as above. PHYSICAL EXAMINATION: VITAL SIGNS: Blood pressure ranges from 88/50 to 100/65, heart rate 84, respiratory rate 20, pulse ox 96%. GENERAL: She is sleepy, but arousable. She still complains of pain in the abdomen with some radiation through to the back. HEENT: Shows no icterus. Oropharynx is negative. NECK: She has no JVD. She has no thyromegaly. LUNGS: Grossly clear. HEART: Regular rate and rhythm. I do not hear murmur or gallop. ABDOMEN: Soft. She has a surgical scar in the right lower quadrant and in the right lower midline. There is no guarding or rebound. Bowel sounds are present. There is no distention. I cannot feel hepatomegaly. EXTREMITIES: Show no cyanosis, clubbing, or edema. LABORATORY DATA: White count initially 18,700, now 13,400; hemoglobin is 12.4 with hematocrit of 37.1 and platelet count of 274,000. Differential initially showed 71 segs and 11 bands, now 79 segs and 3 bands. Chemistry is remarkable for sodium 139, potassium 3.4, chloride 106, CO2 is 25, BUN 9, creatinine 0.7. Liver tests are all normal. Her albumin is slightly low at 3.3. IMAGING STUDIES: Have been reviewed. IMPRESSION: 1. Abdominal pain of unclear cause. There is some mild distention of the intrahepatic and extrahepatic biliary ducts and some sludge, although her pain is not classical for cholelithiasis. No other obvious intraabdominal pathology is noted. 2. History of tobacco abuse. 3. Hypotension, somewhat chronic based on her description, although could be an acute component as well related to mild volume depletion and medications and an even sepsis at present. 4. History of colon cancer with resection and postoperative chemoradiation. PLAN: We will continue current supportive therapies. Surgical consultation is pending and we would absolutely defer to their suggestions regarding the possible need for surgical intervention. She is strongly encouraged regarding continuation of smoking cessation and to have followup with her oncologist on an ongoing basis. Thank you for this consultation. Pulmonary Service will continue to follow. Job ID: [id number]
--- NOTE | 2020-07-01 18:17 | MRI ---
EXAM: MRI Abdomen WO Con DATE: 07/01/2020 5:25 PM INDICATION: 59-year-old female with abdominal pain, colon cancer and concern for common bile duct st one COMPARISON: CT the abdomen and pelvis with contrast dated June 30, [address] the chest, abdom en and pelvis dated December 08, 2019. FINDING: No intraluminal stone is seen within the common bile duct. Common bile measures 4.6 mm. The gallbladder is mildly hydropic. There is mild free fluid overlying the right hepatic margin and within the left subphrenic region. No odilia intrahepatic biliary ductal dilatation is noted. The main pancreatic duct appears within normal limits. There is a 1 cm cyst involving for pole left kidney which is stable. Right kidney is normal-appearing. Spleen is normal-appearing. No definite lymphadeno benigno is noted. There is a small right pleural effusion. IMPRESSION: 1. No choledocholithiasis demonstrated. Hydropic gallbladder. 2. Nonspecific mild ascites. Mild right pleural effusion. 3. Left renal cyst
[2020-07-01] MEDS: Bisacodyl 10 MG SUPP PR PRN (18:38)
[2020-07-02] MEDS: Sodium Chloride 0.9% 1,000 ML IV SCH ×2 (00:11→12:28)
[2020-07-02] MEDS: Piperacillin/Tazobactam 4.5 GM in Sodium Chloride 0.9% 100 ML IVPB SCH ×5 (00:13→23:33)
[2020-07-02] MEDS: Ketorolac Tromethamine 30 MG/ML VIAL IVP SCH ×4 (03:10→20:09)
[2020-07-02 04:32] LABS: #Basophils 0.1 thou/uL (0.0-0.2); #Eosinphils 0.1 thou/uL (0.0-0.7); #Lymphocytes 2.1 thou/uL (1.20-3.40); #Monocytes 0.9 thou/uL (0.11-0.59); #Neutrophils 12.5 thou/uL (1.40-6.50); %Basophils 0.6 % (0.0-1.0); %Eosinophils 0.6 % (0.0-10.0); %Lymphocytes 13.4 % (21.0-51.0); %Monocytes 5.9 % (0.0-10.0); %Neutrophils 79.6 % (42.0-75.0); Hemoglobin 12.4 g/dL (12.0-16.0); Mean Corpuscular HGB CONC 33.2 g/dL (32.0-36.0); Mean Corpuscular Hemoglobin 30.6 pg (27.0-31.0); Mean Corpuscular Volume 92.1 fL (78.0-98.0); Mean Platelet Volume 7.9 fL (7.4-10.4); Platelet Count 271 thou/uL (130-400); RBC Distribution Width 12.4 % (11.5-14.5); Red Blood Cell (RBC) Count 4.04 mill/uL (4.20-5.40); White Blood Cell (WBC) Count 15.7 thou/uL (4.8-10.8)
[2020-07-02 04:54] LABS: Anion Gap 18 mmol/L (10-20); BUN (Urea Nitrogen) 13 mg/dL (9.8-20.1); Calc. Creatinine Clearance 77 mL/min (70-130); Calcium 8.3 mg/dL (7.8-10.44); Carbon Dioxide 15 mmol/L (22-29); Chloride 105 mmol/L (98-107); Estimated GFR-MDRD Greater than 90; Potassium 3.4 mmol/L (3.5-5.1); Sodium 135 mmol/L (136-145)
[2020-07-02 04:58] LABS: Glucose 45 mg/dL (70-105)
[2020-07-02] MEDS: Famotidine/PF 20 mg/2ml Vial SLOW IVP SCH ×2 (07:45→20:10)
[2020-07-02] MEDS: Docusate Calcium (SURFAK) 240 MG CAP PO SCH ×2 (09:02→20:10)
--- NOTE | 2020-07-02 10:08 | PRG ---
DATE OF SERVICE: 07/02/2020 SUBJECTIVE: Ms. Bell expresses sleepiness and fatigue, but actually says her abdominal pain has greatly improved, almost completely. There is no nausea. She is getting clear liquids this morning. MRCP yesterday showed no evidence of choledocholithiasis, only mildly hydropic gallbladder. OBJECTIVE: VITAL SIGNS: Temperature 98.1, pulse 87, blood pressure 95/50, and 93% oxygen saturation on room air. GENERAL: No acute distress. HEART: Regular rate and rhythm. LUNGS: Clear to auscultation bilaterally. ABDOMEN: Nondistended. Bowel sounds are present. Soft. Nontender to palpation. EXTREMITIES: No peripheral edema. LABORATORY STUDIES: Sodium 135, potassium 3.4, BUN 13, creatinine 0.64, glucose 88. WBC 15.7, hemoglobin 12.4, platelets 271. ASSESSMENT AND PLAN: 1. Generalized abdominal pain, unclear etiology. This is primarily in the lower abdomen at least on presentation. 2. Hypotension, the patient is off Levophed. This appears to be more of a chronic issue. 3. Leukocytosis. 4. History of sigmoid adenocarcinoma. I discussed the MRCP results with the patient. Her presentation still really did not seem biliary in nature to me. There is no evidence of choledocholithiasis on the MRCP. She was set to have outpatient colonoscopy this week. We are going to plan for upper and lower endoscopy tomorrow after bowel preparation this evening. If this is unrevealing and the patient has significant recurrence of pain, could consider getting HIDA scan. Job ID: [id number]
[2020-07-02] MEDS: Enoxaparin Sodium 40 MG/0.4 ML SYRINGE SC SCH (10:31)
--- NOTE | 2020-07-02 10:54 | PRG ---
DATE OF SERVICE: 07/02/2020 SUBJECTIVE: A 60-year-old female who was admitted to the ICU with abdominal pain. General Surgery saw the patient. She is status post resection for colon cancer. Apparently according to the information, she has declined any further treatment. OBJECTIVE: GENERAL: Pulmonary saw in the ICU this morning on the monitored telemetry bed. She is having less pain. VITAL SIGNS: Saturations 90% on room air, temperature 98, pulse 87, respirations 16, blood pressure 95/50. CHEST: No wheezing. No crackles. CARDIAC: Normal S1 and S2. No gallops. ABDOMEN: Soft. LABORATORY DATA: White count 15,000, no left shift. Glucose 45. Lytes were normal. ASSESSMENT: 1. Abdominal pain, status post MRI. 2. Hypertension, leukocytosis. 3. History of sigmoid adenocarcinoma. 4. Tobacco abuse. Pulmonary lopez, she appears relatively stable. Disposition as per GI. She is on empiric antibiotics, de-escalate once we get cultures back. Job ID: [id number]
--- NOTE | 2020-07-02 12:32 | PRG ---
DATE OF SERVICE: 07/02/2020 SUBJECTIVE: Ms. Bell today is seen this hospitalization. saw her initially over the weekend in coverage. The patient presented with abdominal pain, apparently, lower abdominal pain. CAT scan of the abdomen and pelvis revealed moderate constipation, gallbladder distention. There was some suggestion of intrahepatic ductal mild distention. Gallbladder ultrasound obtained on 06/30/2020 revealed normal liver echogenicity, very mild intrahepatic ductal dilatation, common bile duct 2.8 mm, gallbladder sludge, gallbladder wall upper limits normal. No pericholecystic fluid. Negative sonographic Coates sign. The patient went on to have MRCP that revealed hydrops of the gallbladder, bile duct 4 mm. No intrahepatic ductal dilatation and no evidence of choledocholithiasis. The patient's white count has fallen from 18,000 to 15,000. The patient states she had a bowel movement prior to coming to the hospital, but none since. The patient's bilirubin is increased to 2, on admission mildly elevated at 1.4. Transaminases had been normal. When I enter the room to see her today, she states that she just does not feel well. She denies having any abdominal pain, although when further questioned states her abdominal pain was in lower abdomen. PHYSICAL EXAMINATION: VITAL SIGNS: 98.1 degrees, 93, 113/58. LUNGS: Clear to auscultation. CARDIAC: Regular rate and rhythm without murmur or gallop. ABDOMEN: Soft, nontender. No hernias. Well-healed midline incision. Well healed. Ileostomy reversal scar, right abdomen. EXTREMITIES: Unremarkable. ASSESSMENT/PLAN: 1. The patient has abdominal pain, lower abdomen, which is not consistent with biliary etiology. However, her bilirubin is slightly elevated. There is distention of her gallbladder. Ultrasound did suggest sludge. The meaning of this is uncertain. We have a normal bile duct caliber on ultrasound that suggested mild intrahepatic ductal dilatation, but MRCP refuted that stating the bile duct was 4.2 mm and there was no intrahepatic ductal dilatation and no evidence of choledocholithiasis. Considering the persistently dilated gallbladder, overall poor feeling of the patient and the fact that her bilirubin is elevated, we will order a HIDA scan. I do not see any reason to do an ejection fraction. We are concerned about whether the gallbladder visualizes or not. 2. The 10/05/2019 laparoscopic converted to open, left colon resection, anastomosis diverting ileostomy, subsequent ileostomy reversal, MediPort placement and removal. Patient completed some degree of chemotherapy this past summer. She has not been on chemotherapy for several months. The patient had an appendectomy, left colectomy for a [id number] sigmoid colon cancer. CEA level preoperatively was 5.66. CAT scan does not reveal any evidence of problems. Prior to ileostomy reversal, the patient did have a flexible sigmoidoscopy and a couple of polyps removed by Dr. Hayes. 3. Tubular adenoma. She is due for a full colonoscopy and Dr. Perez is arranging this for tomorrow. The etiology of the pain is uncertain, but we will obtain a HIDA scan to assure the gallbladder visualizes and await upper and lower endoscopy tomorrow. Job ID: [id number]
[2020-07-02] MEDS: Ondansetron PF 4 MG/2 ML Vial IVP PRN ×2 (12:48→20:09)
[2020-07-02 12:55] LABS: SARS-CoV-2 MS2 Positive; SARS-CoV-2 N Gene Negative; SARS-CoV-2 S Gene Negative; SARS-CoV-2 by NAA Not Detected (NotDetected); SARS-CoV-2 orf1ab Negative
--- NOTE | 2020-07-02 15:54 | PDOC.HOSPP ---
- Subjective Encounter Date: 07/02/20 Encounter Time: 15:53 Subjective: Patient seen and evaluated. 60-year-old woman admitted little lower abdominal pain who has underwent multiple imaging studies. There is a question of gallbladder dilatation on ultrasound and MRCP however the location of her pain does not suggest cholelithiasis. Ongoing plan for the patient to have a HIDA scan obtained today. GI plans to do upper and lower endoscopy during this hospitalization. When I visited with the patient she says that the pain is a lot better. She does state that she does not feel quite well. However she could not describe it further. - Objective Vital Signs & Weight: Vital Signs (12 hours) Temp Pulse Resp BP BP Pulse Ox 07/02/20 12:00 98.2 F 79 16 96/54 L 94 L 07/02/20 10:40 113/58 L 07/02/20 08:00 93 L 07/02/20 07:49 95/50 L 07/02/20 07:20 98.1 F 87 16 90/49 L 85/46 L 93 L Weight Admit Weight 94 lb 12.78 oz Weight 112 lb 1.6 oz Most Recent Monitor Data Heart Rate from ECG 87 NIBP 108/53 NIBP BP-Mean 71 Respiration from ECG 10 SpO2 77 I&O: 07/01/20 07/02/20 07/03/20 06:59 06:59 06:59 Intake Total 2015 Output Total 600 Balance 1415 Result Diagrams: 07/02/20 03:58 07/02/20 03:58 Additional Labs: Accuchecks 07/02/20 07/02/20 07/02/20 12:27 10:33 08:51 POC Glucose 98 113 H 88 07/02/20 07:29 POC Glucose 100 Radiology Reviewed by me: Yes EKG Reviewed by me: Yes Hospitalist ROS - Review of Systems ROS unobtainable: due to mental status Constitutional: reports: fever Gastrointestinal: reports: nausea, abdominal pain Neurological: reports: weakness - Medication Medications: Active Medications Generic Name Dose Route Start Last Admin Trade Name Freq PRN Reason Stop Dose Admin Hydrocodone Bitart/Acetaminophen 2 tab 06/30/20 21:34 07/01/20 11:15 Hydrocodone/Acetaminophen 7.5/325 Mg Tablet PO 2 tab Q4H PRN Administration Severe Pain (7-10) Bisacodyl 10 mg 07/01/20 14:47 07/01/20 18:38 Bisacodyl 10 Mg Supp OH 10 mg Q8H PRN Administration Constipation Docusate Calcium 240 mg 07/01/20 09:00 07/02/20 09:02 Docusate Calcium (Surfak) 240 Mg Cap PO 240 mg BID DENILSON Administration Enoxaparin Sodium 40 mg 07/01/20 09:00 07/02/20 10:31 Enoxaparin Sodium 40 Mg/0.4 Ml Syringe SC 40 mg 0900 DENILSON Administration Famotidine 20 mg 07/01/20 09:00 07/02/20 07:45 Famotidine/Pf 20 Mg/2ml Vial SLOW IVP 20 mg Q12HR DENILSON Administration Sodium Chloride 1,000 mls @ 100 mls/hr 06/30/20 21:45 07/02/20 12:28 Normal Saline 0.9% IV 1,000 mls .Q10H DENILSON Administration Piperacillin Sod/Tazobactam 100 mls @ 200 mls/hr 06/30/20 23:59 07/02/20 12:25 Sod 4.5 gm/ Sodium Chloride IVPB 100 mls Q6HR DENILSON Administration Ketorolac Tromethamine 30 mg 07/02/20 14:00 07/02/20 13:44 Ketorolac Tromethamine 30 Mg/Ml Vial IVP 07/07/20 14:01 30 mg Q6H DENILSON Administration Morphine Sulfate 2 mg 06/30/20 21:42 07/01/20 16:33 Morphine 2 Mg/Ml Vial SLOW IVP 2 mg Q4H PRN Administration Pain Ondansetron HCl 4 mg 06/30/20 21:34 07/02/20 12:48 Ondansetron Pf 4 Mg/2 Ml Vial IVP 4 mg Q6H PRN Administration Nausea/Vomiting - Exam General Appearance: NAD, awake alert, ill appearing ENT: normocephalic atraumatic, no oropharyngeal lesions, moist mucosa Neck: supple, symmetric, no JVD, no thyromegaly Heart: RRR, no murmur, no gallops, no rubs, normal peripheral pulses Respiratory: CTAB, no wheezes, no rales, no ronchi, normal chest expansion Gastrointestinal: soft, non-tender, non-distended, normal bowel sounds Extremities: no cyanosis, no clubbing, no edema Neurological: cranial nerve grossly intact, no focal deficits Musculoskeletal: generalized weakness Psychiatric: normal affect, normal behavior, A&O x 3, oriented to person Hosp A/P (1) Intractable abdominal pain Code(s): R10.9 - UNSPECIFIED ABDOMINAL PAIN Status: Acute (2) Colon cancer Code(s): C18.9 - MALIGNANT NEOPLASM OF COLON, UNSPECIFIED Status: Chronic Qualifiers: Colon location: sigmoid Qualified Code(s): C18.7 - Malignant neoplasm of sigmoid colon (3) Bipolar disorder Code(s): F31.9 - BIPOLAR DISORDER, UNSPECIFIED Status: Chronic Qualifiers: Current bipolar episode type: mixed Current episode severity: moderate (4) Constipation by delayed colonic transit Code(s): K59.01 - SLOW TRANSIT CONSTIPATION Status: Acute - Plan #1. Abdominal pain. Unclear etiology. She does have evidence of moderate constipation. GI and general surgery evaluation is ongoing. I will continue her on supportive care with pain control, antiemetics if she needs it, continue IV fluids. 07/02/2020. GI plans to do upper and lower endoscopy during this admission. Continue pain control. #2. Moderate constipation #3. History of colon cancer. She has been previously treated. 4. Tobacco dependence.
[2020-07-02] MEDS: HYDROcodone/Acetaminophen 7.5/325 mg Tablet PO PRN (16:02)
--- NOTE | 2020-07-02 16:55 | NM ---
NUCLEAR MEDICINE HEPATOBILIARY SCAN: DATE: 07/02/2020 HISTORY: 60-year-old female with abdominal pain, gallbladder distention, and gallbladder sludge. Rule out acut e cholecystitis. TECHNIQUE: Because the gallbladder was dilated, the patient was pretreated with CCK prior to mebrofenin injectio n: Kinevac (CCK analog) dose: 1 mcg. Technetium 99m-mebrofenin dose: 4.4 mCi. Dynamic anterior scintigraphy of abdomen for one hour. . No subsequent CCK injection. FINDINGS: There is normal hepatic uptake and washout of activity. Bowel activity is visualized. There is visualization of the common duct. The gallbladder begins to fill early, and fills normally. IMPRESSION: Negative for acute cholecystitis
[2020-07-02] MEDS ORDERED: GoLYTELY 4,000 ml Bottle PO SCH (17:00)
[2020-07-03] MEDS: Ketorolac Tromethamine 30 MG/ML VIAL IVP SCH ×4 (02:26→21:55)
[2020-07-03] MEDS: Morphine 2 MG/ML VIAL SLOW IVP PRN ×3 (02:26→16:14)
[2020-07-03 04:25] LABS: #Eosinphils 0.1 thou/uL (0.0-0.7); #Lymphocytes 1.3 thou/uL (1.20-3.40); #Monocytes 0.9 thou/uL (0.11-0.59); #Neutrophils 9.8 thou/uL (1.40-6.50); %Basophils 0.4 % (0.0-1.0); %Eosinophils 0.7 % (0.0-10.0); %Lymphocytes 10.4 % (21.0-51.0); %Monocytes 7.5 % (0.0-10.0); Hemoglobin 11.7 g/dL (12.0-16.0); Mean Corpuscular HGB CONC 34.1 g/dL (32.0-36.0); Mean Corpuscular Hemoglobin 30.9 pg (27.0-31.0); Mean Corpuscular Volume 90.7 fL (78.0-98.0); Mean Platelet Volume 7.5 fL (7.4-10.4); Platelet Count 240 thou/uL (130-400); RBC Distribution Width 12.4 % (11.5-14.5); White Blood Cell (WBC) Count 12.1 thou/uL (4.8-10.8)
[2020-07-03 04:48] LABS: Anion Gap 12 mmol/L (10-20); BUN (Urea Nitrogen) 8 mg/dL (9.8-20.1); Calc. Creatinine Clearance 87 mL/min (70-130); Carbon Dioxide 21 mmol/L (22-29); Chloride 106 mmol/L (98-107); Estimated GFR-MDRD Greater than 90; Glucose 82 mg/dL (70-105); Potassium 3.4 mmol/L (3.5-5.1); Sodium 136 mmol/L (136-145)
[2020-07-03] MEDS: Piperacillin/Tazobactam 4.5 GM in Sodium Chloride 0.9% 100 ML IVPB SCH ×3 (05:38→18:13)
[2020-07-03] MEDS: Sodium Chloride 0.9% 1,000 ML IV SCH ×3 (05:38→18:06)
[2020-07-03] MEDS: Enoxaparin Sodium 40 MG/0.4 ML SYRINGE SC SCH (08:21)
[2020-07-03] MEDS: Famotidine/PF 20 mg/2ml Vial SLOW IVP SCH ×2 (08:21→21:55)
[2020-07-03] MEDS ORDERED: Fleet Enema 133 ML BOT PR SCH (09:45)
--- NOTE | 2020-07-03 10:09 | PRG ---
DATE OF SERVICE: 07/03/2020 SUBJECTIVE: Ms. Bell has taken half of her bowel prep, but is not having bowel movements with it yet. She feels distended and has lower abdominal pain related to the bowel distention. No nausea or vomiting. OBJECTIVE: VITAL SIGNS: Temperature is 98.6, pulse 79, blood pressure 142/74. GENERAL: She appears uncomfortable due to the lower abdominal pain. LUNGS: Clear to auscultation bilaterally. HEART: Regular rate and rhythm without murmur. ABDOMEN: Mildly distended, but she has bowel sounds present. Her abdomen is tender, but she has no guarding. EXTREMITIES: No lower extremity edema. LABORATORY DATA: Today, creatinine 0.59. White blood cell count is trending down to 12.1, hemoglobin 11.7, platelets 240. IMPRESSION: 1. Lower abdominal pain. 2. 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 She has never had a completion colonoscopy to evaluate her proximal colon and this was planned for today; however, she has not been able to complete her bowel prep as of yet. 3. Isolated hyperbilirubinemia. MRCP does not show any signs of stones or acute biliary obstruction. Her symptoms are more suggestive of bowel origin and biliary origin. RECOMMENDATIONS: 1. We will give a fleets enema to try to initiate a bowel movement. When she is passing the bowel prep that she has taken through, then she can finish the bowel prep and we can reschedule EGD and colonoscopy tomorrow. 2. If she starts vomiting the bowel prep instead, then an NG tube can be placed to suction. Job ID: [id number]
[2020-07-03] MEDS: Docusate Calcium (SURFAK) 240 MG CAP PO SCH ×2 (12:43→21:55)
[2020-07-03] MEDS ORDERED: Bisacodyl 10 MG SUPP PR SCH (14:15)
--- NOTE | 2020-07-03 15:25 | PRG ---
DATE OF SERVICE: 07/03/2020 SUBJECTIVE: Milena Bell is doing well today. She complains of lower abdominal pain, bloating. She is having trouble taking her GoLYTELY prep for her colonoscopy. She had an enema. She has not consumed much of her GoLYTELY. She denies any pain in her upper abdomen. HIDA scan revealed visualization of the gallbladder, not consistent with cholecystitis. Abdomen is soft, nontender except for mild tenderness in lower abdomen. ASSESSMENT AND PLAN: 1. Constipation, abdominal pain. 2. Elevated bilirubin of uncertain significance. Gallbladder was distended. Negative sonographic Coates sign on ultrasound. CAT scan, distended gallbladder, common bile duct normal caliber. MRI scan, negative for choledocholithiasis. Transaminases are normal. HIDA scan negative for cholecystitis. At this point, cholecystectomy is not indicated. Gallbladder as such seen on admission on ultrasound was probably cholestasis. At this point, I will see the patient as needed. She can follow up in my office as needed. Await colonoscopy results. Job ID: [id number]
--- NOTE | 2020-07-03 17:10 | PDOC.HOSPP ---
- Subjective Encounter Date: 07/03/20 Encounter Time: 17:08 Subjective: This patient was seen and evaluated. GI service had attempted endoscopic evaluation today but apparently she could not tolerate it due to abdominal distention prompting the procedure to be put on hold. She said that her pain is actually a little bit better today. She reports no bowel movement yet. We will defer to the GI service about bowel preparation and endoscopic evaluation. - Objective Vital Signs & Weight: Vital Signs (12 hours) Temp Pulse Resp BP Pulse Ox 07/03/20 15:41 99.4 F 96 16 145/70 H 93 L 07/03/20 11:37 98.3 F 85 16 135/63 93 L 07/03/20 09:53 98.6 F 88 18 131/67 95 07/03/20 08:00 95 07/03/20 07:13 98.6 F 79 16 142/74 H 95 Weight Admit Weight 94 lb 12.78 oz Weight 116 lb 4.8 oz Most Recent Monitor Data Heart Rate from ECG 87 NIBP 108/53 NIBP BP-Mean 71 Respiration from ECG 10 SpO2 77 I&O: 07/02/20 07/03/20 07/04/20 06:59 06:59 06:59 Intake Total 2014 2560 Output Total 600 370 Balance 1415 2190 Result Diagrams: 07/03/20 04:03 07/03/20 04:03 Additional Labs: Accuchecks 07/03/20 07/03/20 07/03/20 10:38 05:35 00:29 POC Glucose 72 85 90 07/02/20 05:46 POC Glucose 63 L Radiology Reviewed by me: Yes EKG Reviewed by me: Yes Hospitalist ROS - Review of Systems Constitutional: reports: weakness, malaise Respiratory: reports: cough Gastrointestinal: reports: nausea, vomiting Neurological: reports: weakness, change in speech - Medication Medications: Active Medications Generic Name Dose Route Start Last Admin Trade Name Freq PRN Reason Stop Dose Admin Hydrocodone Bitart/Acetaminophen 2 tab 06/30/20 21:34 07/02/20 16:02 Hydrocodone/Acetaminophen 7.5/325 Mg Tablet PO 2 tab Q4H PRN Administration Severe Pain (7-10) Bisacodyl 10 mg 07/01/20 14:47 07/01/20 18:38 Bisacodyl 10 Mg Supp [place] 10 mg Q8H PRN Administration Constipation Docusate Calcium 240 mg 07/01/20 09:00 07/03/20 12:43 Docusate Calcium (Surfak) 240 Mg Cap PO Not Given BID DENILSON Enoxaparin Sodium 40 mg 07/01/20 09:00 07/03/20 08:21 Enoxaparin Sodium 40 Mg/0.4 Ml Syringe SC Not Given 0900 [facility] Famotidine 20 mg 07/01/20 09:00 07/03/20 08:21 Famotidine/Pf 20 Mg/2ml Vial SLOW IVP 20 mg Q12HR DENILSON Administration Sodium Chloride 1,000 mls @ 100 mls/hr 06/30/20 21:45 07/03/20 08:28 Normal Saline 0.9% IV Not Given .Q10H DENILSON Piperacillin Sod/Tazobactam 100 mls @ 200 mls/hr 06/30/20 23:59 07/03/20 12:39 Sod 4.5 gm/ Sodium Chloride IVPB 100 mls Q6HR DENILSON Administration Ketorolac Tromethamine 30 mg 07/02/20 14:00 07/03/20 15:50 Ketorolac Tromethamine 30 Mg/Ml Vial IVP 07/07/20 14:01 30 mg Q6H DENILSON Administration Morphine Sulfate 2 mg 06/30/20 21:42 07/03/20 16:14 Morphine 2 Mg/Ml Vial SLOW IVP 2 mg Q4H PRN Administration Pain Ondansetron HCl 4 mg 06/30/20 21:34 07/02/20 20:09 Ondansetron Pf 4 Mg/2 Ml Vial IVP 4 mg Q6H PRN Administration Nausea/Vomiting - Exam General Appearance: awake alert, ill appearing Eye: PERRL ENT: normocephalic atraumatic, no oropharyngeal lesions, moist mucosa Neck: supple Heart: RRR Respiratory: CTAB, no wheezes, no rales, no ronchi, normal chest expansion Gastrointestinal: soft, non-distended, tender to palpation, voluntary guarding Extremities: no cyanosis, no edema Neurological: cranial nerve grossly intact, normal sensation to touch Musculoskeletal: normal tone, normal strength, no muscle wasting Psychiatric: normal affect, normal behavior, A&O x 3, oriented to person, oriented to place, oriented to time Hosp A/P (1) Intractable abdominal pain Code(s): R10.9 - UNSPECIFIED ABDOMINAL PAIN Status: Acute (2) Colon cancer Code(s): C18.9 - MALIGNANT NEOPLASM OF COLON, UNSPECIFIED Status: Chronic Qualifiers: Colon location: sigmoid Qualified Code(s): C18.7 - Malignant neoplasm of sigmoid colon (3) Bipolar disorder Code(s): F31.9 - BIPOLAR DISORDER, UNSPECIFIED Status: Chronic Qualifiers: Current bipolar episode type: mixed Current episode severity: moderate (4) Constipation by delayed colonic transit Code(s): K59.01 - SLOW TRANSIT CONSTIPATION Status: Acute - Plan #1. Abdominal pain. Unclear etiology. She does have evidence of moderate constipation. GI and general surgery evaluation is ongoing. I will continue her on supportive care with pain control, antiemetics if she needs it, continue IV fluids. 07/02/2020. GI plans to do upper and lower endoscopy during this admission. Continue pain control. 07/03/2020. GI attempted endoscopic evaluation earlier today but this was unsuccessful. Patient continues to complain about abdominal discomfort but she does look comfortable on exam. She has no tenderness on deep palpation. No clear source of the abdominal pain on this woman. #2. Moderate constipation #3. History of colon cancer. She has been previously treated. 4. Tobacco dependence.
--- NOTE | 2020-07-03 18:24 | PRG ---
DATE OF SERVICE: 07/03/2020 SUBJECTIVE: Ms. Bell has had no bowel movement today. She had a Fleet Enema with only output of the enema. She has had a Dulcolax suppository without effect so far. On further discussion with the nursing staff, she only took a couple of cups of her prep last night and this morning rather than half the gallon jug as the patient had earlier indicated to me. The patient complained of pain this afternoon and received morphine. OBJECTIVE: VITAL SIGNS: Temperature 99.4, pulse 96, blood pressure 145/70. GENERAL: She is in no acute distress. She is sleepy from having had morphine. LUNGS: Clear to auscultation bilaterally. HEART: Regular rate and rhythm. ABDOMEN: Distended. Her bowel sounds are present. Mild tenderness. EXTREMITIES: No lower extremity edema. IMPRESSION: 1. Lower abdominal pain. She has a history of sigmoid colon cancer, status post resection and chemotherapy. She has not yet had a completion colonoscopy to evaluate the more proximal colon. We have recommended colonoscopy and bowel prep. However, the patient is currently refusing additional bowel prep. 2. Isolated hyperbilirubinemia. Her gallbladder does fill and empty. She does not have obvious evidence of acute cholecystitis at this point and surgery is not indicated. RECOMMENDATIONS: 1. She is receiving Dulcolax suppository. 2. Recommendation is to repeat attempted bowel prep tomorrow morning. Currently, she is refusing any additional attempts at that. She is indicating she might leave against medical advice. If she chooses to stay, then in the meantime, we will restart a clear liquid diet and we will write orders for GoLYTELY for tomorrow if she agrees to take it. This can be reassessed in the morning. Job ID: [id number]
[2020-07-04] MEDS: Piperacillin/Tazobactam 4.5 GM in Sodium Chloride 0.9% 100 ML IVPB SCH ×2 (00:41→05:12)
[2020-07-04] MEDS: Bisacodyl 10 MG SUPP PR PRN (00:42)
[2020-07-04] MEDS: Ketorolac Tromethamine 30 MG/ML VIAL IVP SCH (02:20)
[2020-07-04 03:00] VITALS: BP 126/70; TEMP 98.4
[2020-07-04] MEDS: Sodium Chloride 0.9% 1,000 ML IV SCH (05:12)
[2020-07-04 05:23] VITALS: BMI 22.3
--- NOTE | 2020-07-04 09:16 | PDOC.DS.DS ---
Provider - Provider Date of Admission: 06/30/20 20:07 Date of Discharge: 07/04/20 (AGAINST MEDICAL ADVICE) Admitting Provider: Alli Horn Primary Care Physician: [facility] Course - Hospital Course Hospital Course: This is a 60-year-old female with a history of sigmoid cancer status post surgical intervention and was on chemotherapy up until summer this year. She had presented to the hospital with lower abdominal pain. She had multiple imaging studies and initially there was some concerns about possible gallbladder issues but MRCP and gallbladder sonogram did not show any acute cholecystitis. GI services were in the process of doing upper and lower endoscopy. The patient however decided today that she wanted to leave AGAINST MEDICAL ADVICE. Despite multiple counseling by this physician and the nursing staff the patient insisted that she wants to be discharged. She understand that she is at risk of worsening of her condition up to and including but she still wants to leave AGAINST MEDICAL ADVICE. She left the hospital today AGAINST MEDICAL ADVICE. Resuscitation Status: 06/30/20 21:34 Resuscitation Status Routine Resuscitation Status: FULL: Full Resuscitation - Labs Lab Results: 07/03/20 04:03 07/03/20 04:03 Abnormal Lab Results - Last 48 hrs 07/03/20 04:03: Potassium 3.4 L, Carbon Dioxide 21 L, BUN 8 L, Creatinine 0.59 L 07/03/20 04:03: WBC 12.1 H, RBC 3.80 L, Hgb 11.7 L, Hct 34.5 L, Neutrophils % 81.0 H, Lymphocytes % 10.4 L, Neutrophils # 9.8 H, Monocytes # 0.9 H 07/03/20 04:03: C-Reactive Protein 10.15 H Microbiology - Entire Visit 06/30/20 13:27 Venous blood - Left Hand Blood Culture - Preliminary NO GROWTH AT 48 HOURS 06/30/20 13:18 Venous blood - Right Hand Blood Culture - Preliminary NO GROWTH AT 48 HOURS 06/30/20 13:40 Urine Straight Catheter Urine Culture - Final NO GROWTH AT 48 HOURS - Physical Exam Vitals: Vital Signs (12 hours) Temp Pulse Resp BP Pulse Ox 07/04/20 02:57 98.4 F 76 15 126/70 94 L Weight Admit Weight 94 lb 12.78 oz Weight 118 lb Most Recent Monitor Data Heart Rate from ECG 87 NIBP 108/53 NIBP BP-Mean 71 Respiration from ECG 10 SpO2 77 Physical Exam: The patient was seen and examined on the day of discharge. Problem - Problem (1) Intractable abdominal pain Code(s): R10.9 - UNSPECIFIED ABDOMINAL PAIN Status: Acute (2) Colon cancer Code(s): C18.9 - MALIGNANT NEOPLASM OF COLON, UNSPECIFIED Status: Chronic Qualifiers: Colon location: sigmoid Qualified Code(s): C18.7 - Malignant neoplasm of sigmoid colon (3) Bipolar disorder Code(s): F31.9 - BIPOLAR DISORDER, UNSPECIFIED Status: Chronic Qualifiers: Current bipolar episode type: mixed Current episode severity: moderate (4) Constipation by delayed colonic transit Code(s): K59.01 - SLOW TRANSIT CONSTIPATION Status: Acute Plan - Discharge Medications Home Medications: Medication Instructions Recorded Confirmed Type Nortriptyline HCl 50 mg PO HS 09/30/19 07/01/20 History PARoxetine HCl 0.5 tab PO BID 09/30/19 07/01/20 History Allergies: No Known Allergies Allergy (Verified 07/01/20 01:40 CDT) - Discharge Instructions Activity:: Activity as Tolerated Nourishment:: Regular Diet Therapies:: Not Applicable Equipment/Supplies:: Not Applicable - Follow up Plan Referrals: [facility] [Primary Care Provider] - Disposition: HOME Quality - Care Measures CORE MEASURES:: N/A
--- NOTE | 2020-07-06 06:58 | PQF ---
CLINICAL DOCUMENTATION CLARIFICATION FORM: Dear : Lee Chaudhry Date / Time: 07/06/2020 Please exercise your independent, professional judgment in responding to the clarification form. Clinical indicators are provided on the bottom of this form for your review Please check appropriate box(es): [ ] Sepsis [ ] Localized infection without sepsis [ ] Other diagnosis [x ] Unable to determine In addition, please specify: Present on Admission (POA): [ ] Yes [ ] No [x ] Unable to determine To be completed by CDI/Coding staff for physician review: Present Clinical Indicators - Signs / Symptoms / Labs Results and Location in Medical Record [ x ] ED final diagnosis: Ascending cholangitis and sepsis. Differential diagnoses: Sepsis secondary to bacteremia, cholecystitis and ascending cholangitis ED provider notes [ x ] Respiratory rates were 32, 29, 28, 27, 26. Heart rates were 113, 112, 102, 100. Blood pressures were 76/64, 78/53, 76/56, 65/48, 74/52 ED provider notes [ x ] WBCs were 18.7, 15.7, 13.4, 12.1 Laboratory [ x ] Hypotension, somewhat chronic, although could be an acute component related to volume depletion and even sepsis at present Consult 07/01 by Peter Cole MD [ x ] Hypotension, the patient is off Levophed. Leukocytosis Progress note 07/02 by Mateus Perez MD Present Risk Factors Results and Location in Medical Record [ x ] Chronic hypotension, history of colon cancer Consult 07/01 by Peter Cole MD Present Treatments Results and Location in Medical Record [ x ] IV Zosyn 06/30 07/04 Medications [ x ] Daily CBCs Laboratory [ x ] IV Levophed 06/30, 07/01 Medications CDS/Judo Instructor Signature: SJ1 Phone #: Date/Time: 07/06/2020 This is a permanent part of the Medical Record [facility]
== END 2020-07-04 08:55 | disposition left against medical advice (07) | DRG 392 ==
LOC: ERS 12:50 → CCU 20:07 → 2NO 07-01 22:20
PROVIDERS: ADMIT Internal Medicine; ATTEND Hospitalist
PROC: 3E033XZ Introduction of Vasopressor into Peripheral Vein, Percutaneous Approach (ICD-10-PCS; principal; 2020-06-30)
DX: R10.30 Lower abdominal pain, unspecified (principal); C18.7 Malignant neoplasm of sigmoid colon; F31.9 Bipolar disorder, unspecified; K59.01 Slow transit constipation; Z20.828 Contact with and (suspected) exposure to other viral communicable diseases; I95.89 Other hypotension; F17.210 Nicotine dependence, cigarettes, uncomplicated; E80.6 Other disorders of bilirubin metabolism; D36.7 Benign neoplasm of other specified sites; K82.8 Other specified diseases of gallbladder; Z90.710 Acquired absence of both cervix and uterus; Z92.21 Personal history of antineoplastic chemotherapy
CPT/HCPCS: 36415; 36416; 71045; 74177; 74181; 76705; 78226; 80048; 80053; 81003; 83605; 85007; 85025; 85027; 86140; 87040; 87086; 87635; 93005; A9537; J1650; J1885; J2060; J2270; J2405; J2543; J3010; J3370; J3490; Q9967; S0028; U0003

== ENCOUNTER 2020-09-18 07:14 | Emergency (ER) | payer OTHER ==
[2020-09-18] MEDS ORDERED: Ketorolac Tromethamine 30 MG/ML VIAL ONE (07:43)
[2020-09-18 07:54] LABS: Hemoglobin 13.3 g/dL (12.0-16.0); Mean Corpuscular HGB CONC 31.3 g/dL (32.0-36.0); Mean Corpuscular Hemoglobin 28.2 pg (27.0-31.0); Mean Corpuscular Volume 90.1 fL (78.0-98.0); Mean Platelet Volume 7.9 fL (7.4-10.4); Platelet Count 297 thou/uL (130-400); RBC Distribution Width 13.4 % (11.5-14.5); White Blood Cell (WBC) Count 12.6 thou/uL (4.8-10.8)
[2020-09-18 08:02] LABS: ALT (SGPT) 28 U/L (8-55); AST (SGOT) 48 U/L (5-34); Albumin 4.3 g/dL (3.5-5.0); Alkaline Phosphatase 97 U/L (40-110); Anion Gap 18 mmol/L (10-20); BUN (Urea Nitrogen) 21 mg/dL (9.8-20.1); Bilirubin, Total 0.5 mg/dL (0.2-1.2); Calc. Creatinine Clearance 0 mL/min (70-130); Calcium 9.2 mg/dL (7.8-10.44); Carbon Dioxide 23 mmol/L (22-29); Chloride 106 mmol/L (98-107); Glucose 95 mg/dL (70-105); Lipase 72 U/L (8-78); Potassium 4.7 mmol/L (3.5-5.1); Protein, Total 7.3 g/dL (6.0-8.3); Sodium 142 mmol/L (136-145)
[2020-09-18 08:40] LABS: Band 17 % (5-11); Eosinophils 2 % (0-10); Lymphocytes 15 % (21-51); MDiff Complete? YES; Monocytes 2 % (0-10); Neutrophil 61 % (42-75); RBC Morphology Normal; Reactive Lymphocytes 2 % (0-10)
--- NOTE | 2020-09-18 10:20 | ULT ---
GALLBLADDER ULTRASOUND: Date: 09/18/2020 HISTORY: Right upper quadrant pain. COMPARISON: 06/30/2020. FINDINGS: There is marked gallbladder wall thickening and edematous changes. Multiple nodular nonshadowing depe ndent opacities are noted within the gallbladder, evidence for small gallstones. Common bile duct 0.7 cm. Visualized liver, pancreas, and right kidney are unremarkable. IMPRESSION: Abnormally thickened edematous gallbladder wall with multiple nonshadowing dependent stones and/or no dular sludge, concerning for the possibility of acute cholecystitis. This is a new finding when john red to the 06/30/2020 study. If additional imaging is felt to be needed clinically, a follow-up nuclear medicine hepatobiliary sca n is suggested. POS: RRE
[2020-09-18 11:57] LABS: Bilirubin Negative (Negative); Blood, Urine Negative (Negative); Glucose, Urine (Dipstick) Negative (Negative); Ketone, Urine Negative (Negative); Leukocyte Negative (Negative); Nitrite Negative (Negative); Protein, Urine (Dipstick) Negative (Neg-Trace); Specific Gravity, Urine 1.015 (1.005-1.030); Urobilinogen 0.2 mg/dL (Less than 2)
[2020-09-18 12:12] LABS: Clarity Clear (Clear)
== END 2020-09-18 13:35 | disposition home or self-care (01) ==
LOC: ERS 07:14
DX: K80.50 Calculus of bile duct without cholangitis or cholecystitis without obstruction (principal); F17.210 Nicotine dependence, cigarettes, uncomplicated
CPT/HCPCS: 36415; 51701; 76705; 80053; 81003; 83690; 85025; 96374; J1885

== ENCOUNTER 2021-09-02 11:14 | Outpatient (CLI) | payer OTHER | END 2021-09-02 11:15 | disposition home or self-care (01) | LOC: BICRAD 11:14 | PROVIDERS: ATTEND Family Medicine | DX: M25.511 Pain in right shoulder (principal); R91.8 Other nonspecific abnormal finding of lung field; R93.7 Abnormal findings on diagnostic imaging of other parts of musculoskeletal system; R29.898 Other symptoms and signs involving the musculoskeletal system; M47.812 Spondylosis without myelopathy or radiculopathy, cervical region | CPT/HCPCS: 71046; 72040 ==

== ENCOUNTER 2021-11-14 09:34 | Outpatient (CLI) | payer OTHER ==
[2021-11-14] MEDS ORDERED: Iopamidol-370 76% 500 ML 1 ML ONE (09:38)
== END 2021-11-14 09:35 | disposition home or self-care (01) ==
LOC: BICCT 09:34
PROVIDERS: ATTEND Internal Medicine Gastroenterology
DX: Z08 Encounter for follow-up examination after completed treatment for malignant neoplasm (principal); R16.0 Hepatomegaly, not elsewhere classified; R19.00 Intra-abdominal and pelvic swelling, mass and lump, unspecified site; Z85.038 Personal history of other malignant neoplasm of large intestine
CPT/HCPCS: 74177; Q9967

== ENCOUNTER 2021-12-12 11:06 | Outpatient (CLI) | payer OTHER ==
[2021-12-13 00:10] LABS: SARS-CoV-2 PCR by NAA Not Detected (NotDetected)
== END 2021-12-12 11:07 | disposition home or self-care (01) ==
LOC: LABBT 11:06
PROVIDERS: ATTEND Internal Medicine Hematology & Oncology
DX: C18.7 Malignant neoplasm of sigmoid colon (principal); R16.0 Hepatomegaly, not elsewhere classified; Z20.822 Contact with and (suspected) exposure to COVID-19
CPT/HCPCS: U0003; U0005

== ENCOUNTER 2022-01-02 16:44 | Emergency (ER) | payer OTHER ==
[2022-01-02] MEDS ORDERED: Morphine 4 MG/ML VIAL ONE ×2 (17:43→20:45)
[2022-01-02] MEDS ORDERED: Ondansetron PF 4 MG/2 ML Vial ONE (17:43)
[2022-01-02 17:51] LABS: #Basophils 0.1 thou/uL (0.0-0.2); #Eosinphils 0.2 thou/uL (0.0-0.7); #Monocytes 0.6 thou/uL (0.11-0.59); #Neutrophils 10.4 thou/uL (1.40-6.50); %Basophils 0.4 % (0.0-1.0); %Eosinophils 1.2 % (0.0-10.0); %Lymphocytes 15.1 % (21.0-51.0); %Monocytes 4.6 % (0.0-10.0); %Neutrophils 78.6 % (42.0-75.0); Hemoglobin 15.7 g/dL (12.0-16.0); Mean Corpuscular HGB CONC 32.3 g/dL (32.0-36.0); Mean Corpuscular Hemoglobin 30.3 pg (27.0-31.0); Mean Corpuscular Volume 93.9 fL (78.0-98.0); Mean Platelet Volume 6.7 fL (7.4-10.4); Platelet Count 462 thou/uL (130-400); RBC Distribution Width 12.3 % (11.5-14.5); Red Blood Cell (RBC) Count 5.16 mill/uL (4.20-5.40); White Blood Cell (WBC) Count 13.2 thou/uL (4.8-10.8)
[2022-01-02 18:11] LABS: ALT (SGPT) 51 U/L (8-55); AST (SGOT) 35 U/L (5-34); Albumin 4.8 g/dL (3.5-5.0); Alkaline Phosphatase 168 U/L (40-110); Anion Gap 14 mmol/L (10-20); BUN (Urea Nitrogen) 12 mg/dL (9.8-20.1); Bilirubin, Total 0.7 mg/dL (0.2-1.2); Calc. Creatinine Clearance 0 mL/min (70-130); Calcium 10.1 mg/dL (7.8-10.44); Carbon Dioxide 29 mmol/L (22-29); Chloride 102 mmol/L (98-107); Globulin 3.6 g/dL (2.4-3.5); Glucose 91 mg/dL (70-105); Lipase 25 U/L (8-78); Protein, Total 8.4 g/dL (6.0-8.3); Sodium 141 mmol/L (136-145)
== END 2022-01-02 21:27 | disposition home or self-care (01) ==
LOC: ERS 16:44
DX: K56.609 Unspecified intestinal obstruction, unspecified as to partial versus complete obstruction (principal); C79.89 Secondary malignant neoplasm of other specified sites; C78.7 Secondary malignant neoplasm of liver and intrahepatic bile duct; C18.9 Malignant neoplasm of colon, unspecified; F17.210 Nicotine dependence, cigarettes, uncomplicated
CPT/HCPCS: 74177; 80053; 83690; 85025; 93005; 96374; 96375; 96376; J2270; J2405

== ENCOUNTER 2022-01-06 13:11 | Outpatient (CLI) | payer OTHER ==
[2022-01-06 23:56] LABS: SARS-CoV-2 PCR by NAA Not Detected (NotDetected)
== END 2022-01-06 13:12 | disposition home or self-care (01) ==
LOC: LABBT 13:11
PROVIDERS: ATTEND Internal Medicine Hematology & Oncology
DX: Z20.822 Contact with and (suspected) exposure to COVID-19 (principal)
CPT/HCPCS: U0003; U0005

== ENCOUNTER 2022-01-09 08:53 | Day surgery (SDC) | payer OTHER ==
[2021-12-16 13:06] VITALS: BMI 23.8
[2022-01-09 09:00] LABS: #Basophils 0.1 thou/uL (0.0-0.2); #Eosinphils 0.5 thou/uL (0.0-0.7); #Lymphocytes 2.5 thou/uL (1.20-3.40); #Monocytes 0.8 thou/uL (0.11-0.59); #Neutrophils 7.8 thou/uL (1.40-6.50); %Basophils 0.5 % (0.0-1.0); %Eosinophils 4.1 % (0.0-10.0); %Lymphocytes 21.5 % (21.0-51.0); %Monocytes 6.8 % (0.0-10.0); Hemoglobin 14.4 g/dL (12.0-16.0); Mean Corpuscular HGB CONC 32.4 g/dL (32.0-36.0); Mean Corpuscular Hemoglobin 30.3 pg (27.0-31.0); Mean Corpuscular Volume 93.6 fL (78.0-98.0); Mean Platelet Volume 6.6 fL (7.4-10.4); Platelet Count 472 thou/uL (130-400); RBC Distribution Width 12.5 % (11.5-14.5); Red Blood Cell (RBC) Count 4.75 mill/uL (4.20-5.40); White Blood Cell (WBC) Count 11.6 thou/uL (4.8-10.8)
[2022-01-09 09:16] LABS: Prothrombin Time 13.2 sec (12.0-14.7)
== END 2022-01-09 13:45 | disposition home or self-care (01) ==
LOC: CT 08:53
PROVIDERS: ATTEND Internal Medicine Hematology & Oncology
PROC: 0FB13ZX Excision of Right Lobe Liver, Percutaneous Approach, Diagnostic (ICD-10-PCS; principal; 2022-01-09)
DX: C22.9 Malignant neoplasm of liver, not specified as primary or secondary (principal); C18.7 Malignant neoplasm of sigmoid colon; C56.9 Malignant neoplasm of unspecified ovary; J44.9 Chronic obstructive pulmonary disease, unspecified; E78.5 Hyperlipidemia, unspecified; K21.9 Gastro-esophageal reflux disease without esophagitis; Z86.16 Personal history of COVID-19; Z79.899 Other long term (current) drug therapy
CPT/HCPCS: 47000; 77012; 85025; 85610; 85730; 88307; 88313; 88333; 88341; 88342

== ENCOUNTER 2022-01-21 07:59 | Outpatient (CLI) | payer OTHER ==
[2022-01-21] MEDS ORDERED: Iopamidol 370 76% 100 ML VIAL ONE (15:12)
== END 2022-01-21 08:00 | disposition home or self-care (01) ==
LOC: CT 07:59
PROVIDERS: ATTEND Internal Medicine Hematology & Oncology
DX: C18.7 Malignant neoplasm of sigmoid colon (principal); R91.1 Solitary pulmonary nodule; K76.9 Liver disease, unspecified; T82.858A Stenosis of other vascular prosthetic devices, implants and grafts, initial encounter; Z20.822 Contact with and (suspected) exposure to COVID-19
CPT/HCPCS: 71260; Q9967; U0003; U0005

== ENCOUNTER 2022-01-21 11:16 | Outpatient (CLI) | payer OTHER ==
[2022-01-22 00:19] LABS: SARS-CoV-2 PCR by NAA Not Detected (NotDetected)
== END 2022-01-21 11:17 | disposition home or self-care (01) ==
LOC: LABBT 11:16
PROVIDERS: ATTEND Specialist
DX: C18.7 Malignant neoplasm of sigmoid colon (principal); Z20.822 Contact with and (suspected) exposure to COVID-19
CPT/HCPCS: U0003; U0005

== ENCOUNTER 2022-01-22 07:58 | Day surgery (SDC) | payer OTHER ==
[2022-01-21 09:36] VITALS: BMI 24.3
[2022-01-22] MEDS ORDERED: Sodium Chloride 0.9% 100 ML ONE (08:09)
[2022-01-22] MEDS ORDERED: CEFAZOLIN 2 GM VIAL ONE (08:09)
[2022-01-22] MEDS ORDERED: Acetaminophen 500 MG TAB ONE (08:09)
[2022-01-22] MEDS ORDERED: Ketorolac Tromethamine 30 MG/ML VIAL ONE (08:09)
[2022-01-22] MEDS ORDERED: fentaNYL Citrate/PF 100 MCG/2 ML SYRINGE ONE (09:03)
[2022-01-22] MEDS ORDERED: Lidocaine 1% w/Epinephrine 1:100K 20 ML VIAL ONE (09:06)
[2022-01-22] MEDS ORDERED: Bupivacaine PF 0.5% 30 ML VIAL ONE (09:06)
== END 2022-01-22 11:58 | disposition home or self-care (01) ==
LOC: SDC 07:58
PROVIDERS: ATTEND Specialist
PROC: 02HV33Z Insertion of Infusion Device into Superior Vena Cava, Percutaneous Approach (ICD-10-PCS; principal; 2022-01-22)
PROC: 0JH60WZ Insertion of Totally Implantable Vascular Access Device into Chest Subcutaneous Tissue and Fascia, Open Approach (ICD-10-PCS; principal; 2022-01-22)
DX: C18.7 Malignant neoplasm of sigmoid colon (principal); C79.89 Secondary malignant neoplasm of other specified sites; C78.7 Secondary malignant neoplasm of liver and intrahepatic bile duct; Z79.899 Other long term (current) drug therapy
CPT/HCPCS: 71045; C1788; J1642; J1885; J3490; S0020